=== PATIENT | female | born 1935 | race Caucasian/White ===

== ENCOUNTER → 2018-09-22 16:54 | Outpatient (CLI) | payer MEDICARE, OTHER, SELFPAY ==
--- NOTE | 2018-09-22 17:30 | MRI_ITS ---
STUDY: MRI BRAIN WITH AND WITHOUT CONTRAST REASON FOR EXAM: Female, 83 years old. Gait abnormality TECHNIQUE: Standardized multiplanar fat and water weighted pulse sequences were obtained. 13 IV Dotarem was administered for the contrast portion of the examination. COMPARISON: None. FINDINGS: Mild atrophy and moderate periventricular white matter ischemic change without mass effect or restricted diffusion. Chronic ischemic changes within the pk. Normal bilateral basal ganglia. Normal thalami. There is no extra-axial fluid accumulation. Normal flow voids within the major intracranial circulation suggesting patency by spin echo criteria. Normal venous enhancement. There is no enhancing intra-axial or extra-axial abnormality. Normal sella turcica, pituitary gland, infundibular stalk, optic chiasm and hypothalamus. Normal tectal plate and pineal gland. Normal midbrain, and medulla. Normal cerebellum. Normal basal cisterns. Normal bilateral temporal bones. Normal bilateral internal auditory canals. Postsurgical changes of the orbits.. Normal visualized paranasal sinuses. Normal calvarium and skull base. Normal visualized soft tissue structures. Normal visualized upper cervical spine. MRI/Brain W/WO Contrast IMPRESSION: Moderate periventricular matter ischemic changes and chronic ischemic changes of the pk without evidence for acute infarct. Electronically Signed: Andrew Frederick MD at 19:28 EDT , Service support ,
[2018-09-22 20:06] LABS: CREATININE FINGERSTICK 0.8 mg/dL (0.55-1.02); EGFR FINGERSTICK > 60.0000 mL/min (>60)
== END ==
PROVIDERS: Family Provider Internal Medicine; PCP Internal Medicine; Referring Provider Internal Medicine; Visit Provider Internal Medicine
DX: R51 Headache (principal); R26.9 Unspecified abnormalities of gait and mobility
CPT/HCPCS: 70553; A9575

== ENCOUNTER → 2018-10-12 | Outpatient (CLI) | payer MEDICARE, OTHER, SELFPAY ==
[2018-10-05 15:43] VITALS: BMI 21.8
--- NOTE | 2018-10-12 09:28 | BI_ITS ---
MAMMOGRAPHY - BILATERAL DIAGNOSTIC REASON FOR EXAM: Female, 83 years old. Palpable lump in the inferior medial aspect of the left breast. PERTINENT HISTORY: Aunt with breast cancer. Remote left excisional breast biopsy. TECHNIQUE: Digital bilateral breast kelly (3D mammographic acquisition) in the CC and MLO projections. 2-D mediolateral oblique (MLO) and craniocaudad (CC) views of both breasts were obtained. CAD: Full Field Digital Mammography with Computer Added Detection was performed. COMPARISON: Comparison is made with prior examination dated November 10, 2013. FINDINGS: Breast Composition: The breasts are extremely dense, which lowers the sensitivity of mammography. There is a 1.6 cm x 1.5 cm irregular spiculated nodule in the inferior medial aspect of the left breast. This corresponds to the palpable abnormality. Correlation with ultrasound is recommended. No other significant abnormalities are identified. BI/DIAG MAMM W/CAD, BILAT IMPRESSION: There is a 1.6 cm x 1.5 cm slightly irregular spiculated nodule in the inferior medial aspect of the left breast. Correlation with ultrasound is recommended. ASSESSMENT CATEGORY: BIRADS Category 0: Incomplete. Need additional imaging evaluation. A letter regarding these results will be sent to the patient by the facility within 30 days. Approximately 10% of breast cancers are not detected by mammography. A normal mammogram should not delay biopsy of a clinically suspicious abnormality. Electronically Signed: Arturo Van, at 12:48 EDT , Service support ,
--- NOTE | 2018-10-12 09:28 | US_ITS ---
STUDY: ULTRASOUND BREAST - LEFT REASON FOR EXAM: Female, 83 years old. Palpable lump left breast. TECHNIQUE: Axial and longitudinal images of the LEFT breast were performed with a high resolution ultrasound transducer. COMPARISON: Comparison is made with prior mammogram done earlier today. FINDINGS: LEFT Breast: The mammographic abnormality corresponds to a 1.8 cm x 1.6 cm x 1.2 cm hypoechoic slightly irregular nodule with increased vascularity. This is at the 11 o'clock position of the breast at 3 cm from the nipple. A biopsy is recommended. US/Breast Limited Unilateral IMPRESSION: 1.8 cm x 1.6 cm x 1.2 cm hypoechoic irregular nodule with increased vascularity at the 11:00 position of the breast at 3 cm from the nipple. ASSESSMENT CATEGORY: BIRADS Category 5: Highly Suggestive of Malignancy - Appropriate Action Should Be Taken. A letter regarding these results will be sent to the patient by the facility within 30 days. Electronically Signed: Arturo Van, at 12:49 EDT , Service support ,
== END | disposition home or self-care (01) ==
LOC: OPBI 09:24
PROVIDERS: Family Provider Internal Medicine; PCP Internal Medicine; Referring Provider Internal Medicine; Visit Provider Internal Medicine
DX: N63.22 Unspecified lump in the left breast, upper inner quadrant (principal)
CPT/HCPCS: 76642; 77062; 77066; G0279

== ENCOUNTER → 2018-10-15 09:07 | Outpatient (CLI) | payer MEDICARE, OTHER, SELFPAY ==
--- NOTE | 2018-10-15 | IMM_PTH ---
PATIENT: GARY CYR LOC: NIR U#:[id number] AGE/SX: 89/F ROOM: RE10/15/[address]: Dr. David Edmondson MD : 1935 BED: DIS: SPEC #: [id number] RECD: 10/16/18 09:57 STATUS: KAILASH REJef #: [id number] LEXII: 10/15/18 00:[address]: David Edmondson DEPT: IMMUNOHISTOCHEMISTRY RECD BY: Celina Prado ENTERED: 10/16/18 10:03 SP TYPE: IMMUNO OTHR DR: Dr. Ju Cho MD Tissues: B - Left breast, NOS Procedures: CALPONIN-1 (add) CK5-6 (add) CK8 (add) E-CAD (add) HER2 QING (add) KI-67 (add) P53 (add) SC (add) P40 (add) ER (initial) PHYSICIAN & [address] [address] SPECIMEN INFORMATION: Tissue Source: B - Left breast tissue at 11 o'clock Clinical Info: Abnormal left breast ultrasound Specimen Number: [id number] CPT code: 17602, 13534 x6, 73062 x3 METHODOLOGY: Deparaffinized sections of prefer/formalin-fixed tissue or PAP/DQ stained slides are incubated with monoclonal/polyclonal antibodies/oligonucleotide probes. Localization is made via biotin free immunoperoxidase method. Appropriate controls are performed and reacted as expected. Results on target cell population are indicated in the following table: RESULTS: ANTIBODY / CLONE RESULT Block B P53 (DO-7) positive 2% Ki-67 (30-9) positive, low CK8 (94poakG88) positive CK5-6 (D5 & 1684) negative Calponin-1 (VO114K) negative P40 (BC28) negative E-Cad (ECH-6) positive MORPHOMETRIC ANALYSIS ER (clone 6F11) >95%, strong intensity SC (clone 16/1E2) >95%, strong intensity Her-2Neu (clone CB11) 0-1+ The prognostic test for HER2 is performed on formalin-fixed paraffin embedded tissue. A 3+ (positive) staining pattern is defined as intense, homogeneous, complete, circumferential membranous staining in >10% of contiguous tumor cells. A similar weak (2+) staining pattern is interpreted as equivocal. GODWIN follow-up testing is recommended for all equivocal cases. Positivity/negativity for ER/SC is reported if > or < 1% of the tumor cells are immuno- reactive, respectively. The ASCO/CAP criteria is used for scoring. Reference: Journal of Clinical Oncology, 2013; 31:1496-2123 & 2010; 16:4858-2204. Duration of fixation: 12 Hrs; Sample Adequate: Yes. These assays have not been validated on decalcified tissues. Results should be interpreted with caution given the likelihood of false negativity on decalcified specimens. These tests were developed and their performance characteristics determined by [facility]. They may not have been cleared or approved by the U.S. Food and Drug Administration. The FDA has determined that such clearance or approval is not necessary. INTERPRETATION: Left breast tissue at 11 o'clock, biopsy: Invasive colloid carcinoma, grade 1. Positive for estrogen receptors (favorable prognostic indicator). Positive for progesterone receptors (favorable prognostic indicator). Negative for overexpression of NCQ0akb. AM:shashi 10/16/18
--- NOTE | 2018-10-15 | BRBX_PTH ---
PATIENT: GARY CYR LOC: [facility]#:[id number] AGE/SX: 89/F ROOM: RE10/15/[address]: Dr. David Edmondson MD : 1935 BED: DIS: SPEC #: [id number] RECD: 10/15/18 09:10 STATUS: KAILASH SANIA #: [id number] LEXII: 10/15/18 00:[address]: David Edmondson DEPT: SURGICAL PATHOLOGY RECD BY: Will Hoang ENTERED: 10/15/18 09:11 SP TYPE: BREAST BX OTHR DR: Dr. Ju Cho MD Tissues: A - Left breast, NOS B - Breast, NOS Procedures: Surgery Specimen Level IV HEADER OPERATION: Ultrasound-guided needle core biopsy, left breast PRE-OP DIAGNOSIS: Abnormal left breast ultrasound TISSUE SUBMITTED: A - Left breast tissue at 10 o'clock, B - Left breast tissue at 11 o'clock ISCHEMIC TIME: <1 minute FIXATION TIME: 12 hours MICROSCOPIC DIAGNOSIS A. Left breast tissue at 10 o'clock, ultrasound-guided core biopsy: Mature adipose tissue. No evidence of malignancy. B. 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 AM:shashi 10/16/18 COMMENT B. ER/OK/Shk3kbu studies are being performed on sections of tumor and the results from this study will be reported separately ([id number]). Case has been reviewed in consultation with Dr. Carpenter who concurs with the above diagnosis. IDC:SJ MICROSCOPIC DESCRIPTION Slides are reviewed. GROSS DESCRIPTION A - Received in fixative is one container labeled with the patient's name and designated left breast biopsy at 10 o'clock. The specimen consists of multiple elongated fragments of dumas-yellow fibroadipose tissue that in aggregate measure 1 x 0.3 x 0.1 cm. The entire specimen is submitted in one cassette. B - Received in fixative is one container labeled with the patient's name and designated left breast biopsy at 11 o'clock. The specimen consists of multiple elongated fragments of dumas-yellow fibroadipose tissue that in aggregate measure 1 x 0.2 x 0.1 cm. The entire specimen is submitted in one cassette. / SJ:rg 10/15/18 TC:0 CPT: 82364 x2
[2018-10-15 07:19] VITALS: BMI 21.8
== END ==
PROVIDERS: Family Provider Internal Medicine; PCP Internal Medicine; Referring Provider Surgery; Visit Provider Surgery
DX: R92.8 Other abnormal and inconclusive findings on diagnostic imaging of breast (principal)
CPT/HCPCS: 88305; 88341; 88342

== ENCOUNTER → 2018-10-20 13:09 | Outpatient (CLI) | payer MEDICARE, OTHER, SELFPAY ==
[2018-10-05 15:43] VITALS: BMI 21.8
[2018-10-15 07:19] VITALS: BMI 21.8
--- NOTE | 2018-10-20 13:13 | BD_ITS ---
STUDY: DUAL ENERGY X-RAY ABSORPTIOMETRY / DXA REASON FOR EXAM: Female, 83 years old. The patient is postmenopausal. Loss of height. TECHNIQUE: Bone Mineral Density (BMD) measurements of lumbar spine and bilateral hips were obtained. COMPARISON: Comparison is made with prior study dated May 01, 2005. FINDINGS: Lumbar Spine (L1-L4): g/cm2 (0.989) / T-score (-1.6) / Z-score (0.3) Findings are suggestive of osteopenia with a moderate fracture risk. Left Femur Total: g/cm2 (0.856) / T-score (-1.2) / Z-score (1.0) Left Femoral Neck: g/cm2 (0.832) / T-score (-1.5) / Z-score (0.8) Right Femur Total: g/cm2 (0.842) / T-score (-1.3) / Z-score (0.9) Right Femoral Neck: g/cm2 (0.838) / T-score (-1.4) / Z-score (0.9) The T-Scores on the most recent prior examination were: Lumbar Spine (L1-L4): There has been worsening of bone density since the previous examination. Left Femur Total: which represents a worsening of 6.2%. BD/Dexa Bone Density Study IMPRESSION: The patient is considered osteopenic as outlined below according to World [employer] Organization (WHO) criteria with a moderate fracture risk. There has been worsening of bone density since the previous examination. Reference Information: The T-score is the number of standard deviations above or below the standard which is normal for young adults at their peak bone mineral density. The World Health Organization (WHO) interprets the T-scores as follows: Above -1 Normal bone density Between -1 and -2.5 Osteopenia Equal to / or below -2.5 Osteoporosis As a practical clinical guideline, osteopenia may be graded as follows: Mild -1 through -1.5 Moderate -1.6 through -2.0 Severe -2.1 through -2.4 The Z-score is the number of standard deviations above or below age-matched controls. A Z-score of less than -1.5 would be considered abnormal. References: 1. NIH Osteoporosis and Related Bone Diseases http://www.osteo.org 2. International Society for Clinical Densitometry http://www.iscd.org 3. National Osteoporosis Foundation http://www.nof.org Electronically Signed: Arturo Van, at 14:11 EDT , Service support ,
== END ==
PROVIDERS: Family Provider Internal Medicine; PCP Internal Medicine; Referring Provider Internal Medicine; Visit Provider Internal Medicine
DX: Z78.0 Asymptomatic menopausal state (principal); Z12.31 Encounter for screening mammogram for malignant neoplasm of breast
CPT/HCPCS: 77080

== ENCOUNTER 2018-11-10 09:01 | Day surgery (SDC) | payer MEDICARE, OTHER, SELFPAY ==
[2018-10-27 08:42] VITALS: BMI 20.1
--- NOTE | 2018-11-05 06:19 | HP_ITS ---
Intake Vital Signs 11/05/18 Height 5 ft 6 in 11/05/18 Weight: 125 lb 11/05/18 Body Mass Index (BMI) 20.1 11/05/18 Blood Pressure 152/78 H 11/05/18 Blood Pressure Location Rt brachial 11/05/18 Blood Pressure Position Sitting 11/05/18 Respiratory Rate 18 11/05/18 Pulse Rate 79 11/05/18 Pulse Source Monitor 11/05/18 Temperature 98.0 F 11/05/18 Temperature Source Oral 11/05/18 Pulse Ox 100 11/05/18 Oxygen Delivery Method room air 11/05/18 Body Mass Index (BMI) 20.1 Intake Visit Reasons: discuss breast surgery Chief Complaint: Referred for left breast cancer. Lead Web Developer Required: No Is patient in pain?: No Allergies No Known Allergies Allergy (Verified 11/05/18 09:43) Medications Ascorbic Acid [Vitamin C] 500 mg PO DAILY 11/03/18 [History Confirmed 11/05/18] Carbidopa/Levodopa 10/100 [Sinemet] 1 tab PO TIDAC 11/03/18 [History Confirmed 11/05/18] Curamed 1 tab PO DAILY 11/03/18 [History Confirmed 11/05/18] L.acidoph,Paracasei, B.lactis [Probiotic] 1 ea PO DAILY 11/03/18 [History Confirmed 11/05/18] Lisinopril 20 mg PO 1600 11/03/18 [History Confirmed 11/05/18] Metoprolol Succinate 25 mg PO DAILY 11/03/18 [History Confirmed 11/05/18] Multivitamin [Daily Multiple Vitamin] 1 ea PO DAILY 11/03/18 [History Confirmed 11/05/18] [facility] Medical History Breast cancer in female (Acute) Abnormal mammogram of left breast (Acute) Paroxysmal atrial fibrillation (Acute) Mobitz (type) I (Wenckebach's) atrioventricular block (Chronic) Hypertension (Chronic) IBS (irritable bowel syndrome) (Chronic) Surgical History History of left heart catheterization (Chronic 12/06/16) H/O lumpectomy (Acute) History of bunionectomy of both great toes (Acute) Family History Mother Heart disease Father Heart disease chf Social History (Updated 11/05/18 @ 10:46 by David Edmondson MD) Smoking Status: Never smoker alcohol intake: never HPI HPI HPI: GARY CYR, is a 83 F who presents to the office today for HPI HPI Surgical H&P: Yes HPI: GARY CYR, is a 83 F who presents to the office today for ongoing preoperative surgical consultation. The patient has been kindly seen by Dr. Joe Zhou. I have also had a chance to discuss the patient's care with Dr. Zhou. Intake Intake Visit Reasons: Lt Breast Bx 10/15 Chief Complaint: Routine F/u Lead Web Developer Required: No Is patient in pain?: No Allergies No Known Allergies Allergy (Verified 10/20/18 16:20) Medications lisinopril 20 mg tablet 20 mg PO QDAY #90 tab 07/02/18 [Rx Confirmed 10/20/18] metoprolol succinate ER 25 mg tablet,extended release 24 hr 25 mg PO DAILY #90 tab 07/02/18 [Rx Confirmed 10/20/18] Subjective Details: 83-year-old female. She returns to discuss pathology results from a ultrasound- guided needle core biopsy upper inner left breast 11 o'clock position +3 cm that I performed for her on October 15, 2018. At that occasion I actually thought I saw 2 nodules. My previous notes reflect the following. Intake Visit Reasons: Birads 5 Lt Breast US/Mammo [facility] 10/12 Chief Complaint: Routine F/u Lead Web Developer Required: No Is patient in pain?: No Allergies No Known Allergies Allergy (Verified 10/15/18 07:19) Medications lisinopril 20 mg tablet 20 mg PO QDAY #90 tab 07/02/18 [Rx Confirmed 10/15/18] metoprolol succinate ER 25 mg tablet,extended release 24 hr 25 mg PO DAILY #90 tab 07/02/18 [Rx Confirmed 10/15/18] PFS Medical History Paroxysmal atrial fibrillation (Acute) Mobitz (type) I (Wenckebach's) atrioventricular block (Chronic) Hypertension (Chronic) IBS (irritable bowel syndrome) (Chronic) Surgical History History of left heart catheterization (Chronic 12/06/16) H/O lumpectomy (Acute) History of bunionectomy of both great toes (Acute) Family History Mother Heart disease Father Heart disease chf Social History (Updated 10/15/18 @ 18:39 by David Edmondson MD) Smoking Status: Never smoker alcohol intake: never HPI HPI HPI: GARY CYR, is a 83 F who presents to the office today for surgical consultation regardin palpable upper inner left breast mass. 83-year-old female. G4, . Menarche age 13. First child was born when she was 24. She has had a previous left breast cyst excised. She has not been on estrogen replacement. Family history is only notable for a maternal aunt with breast cancer. Within the past very few 1 to 2 weeks she was diagnosed with Parkinson-like symptoms and was placed on Sinemet. She also was noted to have an irregular heart rate was seen by Dr. Paulo Elizalde who did not feels that she had A. fib no anticoagulation was started.. He was unaware that she might require surgery. Also at the beginning of this week she had a Cologuard test submitted. \Because the patient to palpate a left breast mass on October 12, 2018 she had bilateral diagnostic mammogram showing a 1.6 x 1.5 cm irregular spiculated nodule upper inner left breast. Patient on the same day had ultrasound showing a 1.8 x 1.6 x 1.2 cm hypoechoic irregular nodule with increased vascularity 11 o'clock position +3 cm. BI-RADS Category 5. HPI HPI HPI: GARY CYR, is a 83 F who presents to the office today for ROS General General: No weight change, appetite, fatigue, colon cancer, breast cancer or weakness HEENT HEENT: No difficulty swallowing, eye injury, eye surgery, swollen glands or hoarseness Endo Endocrine: No thyroid disease, diabetes mellitus, thyroid cancer, Hair loss, heat intolerance or cold intolerance Skin Skin: No rash or changing moles Breast Breast: No left breast lump, right breast lump, nipple discharge, breast pain, abnormal mammogram, abnormal US or breast enlargement Musc Musculoskeletal: Yes arthritis; no back problems, rheumatoid arthritis, gout or joint pain Cardio Cardiovascular: Yes high blood pressure; no murmur, pacemaker, heart disease, atrial fibrillation, heart attack, heart stent, palpitations, shortness of breat with exertion or chest pain Psych Psychiatric: No depression, anxiety or hearing voices Resp Respiratory: No shortness of breath, No sleep apnea, No cough, No COPD, No asthma, No emphysema, No wheezing Gastro Gastrointestinal: No abdominal pain, Yes nausea or vomiting, Yes diarrhea, No constipation, No blood in stool, No acid reflux, No hemorrhoids, No ulcers, No gallbladder problem, No black,tarry stools Chaz Hematologic: No blood thinners, No blood disorders, No bleeding, No anemia, No blood clots Neuro Neurologic: No system reviewed and no additional complaints, except as docu, No as per HPI, No abnormal walking, No abnormal hearing, No abnormal movements, No abnormal speech, No behavioral changes, No burning sensations, No confusion, No seizure-like activity, No unsteadiness, No dizziness, No localized weakness, No frequent falls, No headache(s), No lack of coordination, No loss of vision, No memory loss, No numbness, No other visual disturbances, No radiating pain, No restless legs, No sensory deficit, No fainting, No tingling, No tremor(s), No weakness, No other Exam Const General: cooperative, comfortable, no acute distress Nutritional Appearance: average body habitus Orientation: alert, awake [facility] Head: normal to inspection Chest Breast Palpation: No nipple discharge Other: Right breast: No focal mass, no nipple discharge, no axillary clip adenopathy Left breast easily palpable 2 cm mass upper inner left breast 11 o'clock position with some dermal retraction. No nipple discharge. No axillary clavicular adenopathy Resp Auscultation: clear to auscultation bilaterally Other: Diminished respiratory excursion Cardio Heart Sounds: no murmurs Other: Irregular heartbeat Bilateral radial and brachial 3+ GI Palpation: soft, no hepatosplenomegaly Auscultation: normal bowel sounds Neuro Other: Somewhat flat affect slow to move Extrem Other: Mild left lower extremity swelling compared to the right Psych Affect: flat Office Procedures Biopsy Provider Documentation Ultrasound-guided needle core biopsy upper inner left breast Timeout and informed consent was obtained. Patient was taken to procedure room. She was placed on the table. The upper inner left breast was prepped with Betadine. Ultrasound was performed. 1% lidocaine mixed 50-50 with 0.5% Marcaine was used as local anesthetic. A total of 10 cc was used. Initially I thought the lesion was well identified. I made a small stab incision advanced a 14-gauge Monopty needle obtain 2 core samples. I placed a marking clip. Ribbon clip but this did not seem to correlate well. I moved the probe slightly to the 11 o'clock position and this correlated better with a much more suspicious lesion. I obtained one core sample of that. I placed a marking clip coil clip Steri-Strip Telfa OpSite dressing applied. The specimens placed in formalin when it documented 10 o'clock position was less suspicious what it left o'clock position which was clearly more specific suspicious lesion She is scheduled return to the office next week. This truly ended up being just 1 specimen of interest for core biopsy. David Edmondson M.D., F.A.C.S. Biopsy Breast Biopsy: [id number] US Guidance Procedure Time Out Time Out Informed consent given: Yes Consent signed: Yes Time out checklist: patient, procedure, site marked/identified, positioning of patient, supplies available, allergies confirmed, team agrees on procedure Time out staff in room: Yes Time out verified: Yes Time out date: 10/15/18 Time out time: 07:30 Assessment & Plan Problems 1. Abnormal mammogram of left breast R92.8 Plan 83-year-old female with a palpable mass upper inner left breast with skin fixation. On ultrasound I actually thought I saw this area that was biopsying but it was slightly more toward 10:00 that area appear to be more round and smooth and likely is inconsequential. I then adjusted the probe and was able to biopsy the area of much more heightened concerned. The patient's mammogram are BI-RADS Category 5. The patient has recently been seen by Dr. Elizalde because of palpitations. We will contact Dr. Paulo Elizalde's office as the patient likely will require surgical intervention and would need to have general anesthesia The patient also states that she just recently had a Cologuard test performed by Dr. Ju Cho. We have contacted that office while we await results. The patient tolerated the ultrasound-guided needle core biopsy upper inner left breast sampling today. We will have her return to the office next week. I am highly suspicious that this is malignancy. I do believe however that at age 83 she would likely be a good candidate for breast conservation surgery. The patient is accompanied by her daughter today. They will return as noted. CC: Astrid Cho and Tonio Edmondson MD,FACS Orders Orders: Biopsy Today N63.20 Coding Level of Care Code 64484 Diagnoses Abnormal mammogram of left breast R92.8 Additional Codes Biopsy - Breast Biopsy: 08581 US Guidance (83868) 10/15/181838<Electronically signed by David Edmondson MD> Date David Edmondson MD Objective Details: Left breast: Ultrasound-guided needle puncture site clean dry healing well with minimal ecchymosis Assessment & Plan Problems 1. Breast cancer in female C50.919 Plan Today was a 30-minute [id number] consultative appointment. Ultrasound-guided needle core biopsy of a more vague area upper inner left breast at 10 o'clock position is mature adipose tissue. 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 Estrogen receptors greater than 95%. Progesterone receptors greater than 95%. HER-2/alex is 0-1+. I had an extensive discussion with the patient in particular daughter today. The patient does have some dementia limitations. We discussed breast conservation surgery with lumpectomy and sentinel lymph node biopsy with nuclear tracer and blue dye. We discussed the potential for radiation treatment in addition to that process. We compared and contrasted that with a left total mastectomy and sentinel node biopsy. We briefly discussed reconstruction but the patient and daughter are not in favor of that. The patient is age 83. She does have recent cognitive decline. The degree of intervention and treatment is in some question. At the completion of the appointment I recommended that we obtain both medical oncology and radiation oncology consultation prior to proceeding with definitive surgery. Although I could avoid radiation treatment by performing a mastectomy that is longer surgery under general anesthesia and require skin flaps and drains in an overnight stay. Technically the patient's mass is not small as it is palpable and measures at least 1.8 cm in diameter. We will tentatively look for an operative date. The procedure still pending. We will obtain consultation as noted above. I appreciate the ongoing opportunity of assisting with her surgical care. CC:Dr Tammie Edmondson M.D., F.A.C.S. Orders Referrals: Oncology C50.912 Oncology C50.912 Coding Level of Care Code Off vis,est,level 3 Diagnoses Breast cancer in female C50.919 10/20/18 1720<Electronically signed by David Edmondson MD> Date David Edmondson MD Cosigner Signature:Date (if applicable) CC: Ju Cho MD ROS General General: No weight change, appetite, fatigue, colon cancer, breast cancer or weakness HEENT HEENT: No difficulty swallowing, eye injury, eye surgery, swollen glands or hoarseness Endo Endocrine: No thyroid disease, diabetes mellitus, thyroid cancer, Hair loss, heat intolerance or cold intolerance Skin Skin: No rash or changing moles Breast Breast: No left breast lump, right breast lump, nipple discharge, breast pain, abnormal mammogram, abnormal US or breast enlargement Musc Musculoskeletal: Yes arthritis; no back problems, rheumatoid arthritis, gout or joint pain Cardio Cardiovascular: Yes high blood pressure; no murmur, pacemaker, heart disease, atrial fibrillation, heart attack, heart stent, palpitations, shortness of breat with exertion or chest pain Psych Psychiatric: No depression, anxiety or hearing voices Resp Respiratory: No shortness of breath, No sleep apnea, No cough, No COPD, No asthma, No emphysema, No wheezing Gastro Gastrointestinal: No abdominal pain, Yes nausea or vomiting, Yes diarrhea, No constipation, No blood in stool, No acid reflux, No hemorrhoids, No ulcers, No gallbladder problem, No black,tarry stools Chaz Hematologic: No blood thinners, No blood disorders, No bleeding, No anemia, No blood clots Neuro Neurologic: No weakness Exam Chest Breast Palpation: No nipple discharge Cardio Heart Sounds: no murmurs Assessment & Plan Problems 1. 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 The lesion is palpable and is in the upper inner left breast 11 o'clock position +3 cm. We have discussed the technique, benefit, risks, alternatives. The patient and her daughter have had an opportunity to ask and have questions answered. We will proceed as noted. CC: Dr. Joe Zhou and Dr. Ju Edmondson M.D., F.A.C.S. 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 There are no clinical changes since date of exam.
[2018-11-05 09:41] VITALS: BMI 20.1
--- NOTE | 2018-11-05 10:23 | RAD_ITS ---
STUDY: X-RAY CHEST REASON FOR EXAM: Female, 83 years old. Preoperative evaluation. TECHNIQUE: PA and lateral views of the chest. COMPARISON: Comparison is made with prior study dated December 03, 2016. FINDINGS: Pectus excavatum deformity. The lungs are clear and expanded. Scattered calcified granulomas. There is no demonstrated pleural abnormality. Normal size heart. Normal mediastinum and elise. Normal visualized pulmonary arteries. There is atherosclerotic tortuosity of the aortic arch and descending thoracic aorta. There is demineralization of the osseous structures. Normal visualized ribs, clavicles, and shoulders. There is no demonstrated abnormality of the visualized soft tissue structures of the upper abdomen. RAD/Chest PA and Lateral IMPRESSION: Pectus excavatum deformity. No acute abnormality is seen. Electronically Signed: Arturo Van, at 11:23 EDT , Service support ,
[2018-11-05 10:32] LABS: Hematocrit 37.1 % (37-47); Hemoglobin 11.6 g/dL (12.0-15.0); Mean Corp Hgb Conc 31.3 g/dL (32-36); Mean Corpuscular Hgb 28.9 pg (27.0-32.0); Mean Corpuscular Volume 92.3 fL (81-99); Mean Platelet Vol. 9.9 fl (6.2-12.0); Platelet Count 176 K/mm3 (150-450); RBC Distribution Width CV 13.3 % (11.6-14.6); RBC Distribution Width SD 45.4 fl (35.1-43.9); Red Blood Count 4.02 M/mm3 (4.2-5.4); White Blood Count 6.4 K/mm3 (4.4-11.0)
[2018-11-05 10:55] LABS: ALB/GLOB Ratio 1.1 RATIO (0.9-2.4); AST(SGOT) 17 U/L (15-37); Alanine Aminotransfer ALT/SGPT 14 U/L (13-56); Alkaline Phosphatase 87 U/L (45-117); Anion Gap 8 (5-15); BUN 22 mg/dL (7-18); BUN/Creat Ratio 20.6 RATIO (10-20); Calcium,Total 9.3 mg/dL (8.5-10.1); Chloride 103 mmol/L (98-107); Creatinine, Serum 1.07 mg/dL (0.55-1.02); EST Glomerular Filtration Rate 52 mL/min (>60); Est Glom Filt Rate - Afr Amer 63 mL/min (>60); Globulin 3.6 g/dL (2.2-4.2); Glucose 89 mg/dL (74-106); Protein, Total 7.6 g/dL (6.4-8.2); Sodium Level 141 mmol/L (136-145)
--- NOTE | 2018-11-10 | BREAST_PTH ---
PATIENT: GARY CYR LOC: [facility] [place] U#:[id number] AGE/SX: 83/F ROOM: RE11/10/[address]: Dr. David Edmondson MD : 1935 BED: DIS: 11/10/2018 SPEC #: [id number] RECD: 11/10/18 11:31 STATUS: KAILASH REJef #: [id number] LEXII: 11/10/18 00:[address]: David Edmondson DEPT: SURGICAL PATHOLOGY RECD BY: Celina Prado ENTERED: 11/10/18 12:09 SP TYPE: BREAST OTHR DR: Dr. Ju Cho MD Tissues: A - Left breast, NOS B - Left breast, NOS Procedures: Frozen Section (charge) Surgery Specimen Level IV Surgery Specimen Level V HEADER OPERATION: Left breast lumpectomy PRE-OP DIAGNOSIS: Abnormal mammogram of left breast TISSUE SUBMITTED: A - Upper inner left breast mass, transverse ellipse tissue, suture in lateral aspect of ellipse, frozen section, B - Superior margin of upper inner left breast mass, suture nicholas area of skin closest to tumor, superior margin FROZEN SECTION DIAGNOSIS A. 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 AM:shashi 11/10/18 MICROSCOPIC DIAGNOSIS A. Left breast, lumpectomy: Invasive colloid carcinoma. See cancer checklist below. B. True superior margin, biopsy: Free of carcinoma. Mild fibrocystic change. Skin with no pathologic change. 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 Distance from closest (superior) margin - 1.7 cm (inclusive of true superior margin, specimen B) Microcalcifications: focally present in non-neoplastic tissue Treatment effect: unknown Additional pathologic findings: Usual intraductal hyperplasia without atypia and focal fibrocystic change. Ancillary studies: Previously performed on same tumor ([id number] / [id number]). ER: >95%, strong intensity AR: >95%, strong intensity Her2 alex: 0-1+ (IHC) Her2 by dual GODWIN: Not amplified PATHOLOGIC STAGE: pT1c Nx Mx The above summary is in compliance with [employer] [place] [employer] (CAP) Cancer Protocols Checklist and [place] [employer] Committee on Cancer (AJCC), Staging Manual, 8th Ed. Case has been reviewed in consultation with Dr. Carpenter who concurs with the above diagnosis. IDC:[id number] MICROSCOPIC DESCRIPTION Slides are reviewed. GROSS DESCRIPTION A - Received fresh for frozen section and OR consultation labeled with the patient's name is a specimen designated left breast mass. The specimen consists of a lumpectomy measuring 5.5 x 4 x 2 cm and weighing 20 gm. The specimen contains a metallic wire and has been oriented. The specimen contains an ellipse of dumas skin in the anterior aspect measuring 2.6 x 0.7 cm. No cutaneous lesions are identified. The specimen is differentially inked as follows: posterior - black, superior - blue, inferior - green, medial - red and lateral - orange. Serial sections reveal a firm, dumas-white spiculated mass measuring 1.6 x 1.2 x 1?cm extending to the inked superior margin of excision. The proximity of the lesion is conveyed to the surgeon intraoperatively A frozen section of this area is performed (block?1). The remainder of the breast parenchyma is yellow-white in color. No other mass lesions are identified. Catalogue Librarian sections are submitted in 12 cassettes after additional fixation as follows: 1 - tumor (frozen section), 2??skin, 3 & 4 - inked perpendicular margins, 5-7 - remainder of tumor, 8-12 - in store representative sections of uninvolved parenchyma adjacent to and away from tumor. B - Received in fixative is one container labeled with the patient's name and designated superior margin. The specimen consists of two irregular fragments of dumas-yellow fibrofatty tissue. One fragment measures 5.6 x 3 x 1 cm and contains a fragment of skin with recent incision that has been approximated by sutures measuring 3.5 cm in length. Serial sections do not reveal mass lesions. The second fragment consists of yellow-white fibrofatty tissue measuring 5 x 4 x 1.7 cm. This fragment is inked and serially sectioned. No mass lesions are identified. Catalogue Librarian fragments are submitted as follows: 1 - first fragment, 2-5 - second fragment submitted in its entirety. Sections are submitted after additional fixation. / AM:shashi 11/11/18 TC:0 CPT: 42729, 71561, 49913, 04350
[2018-11-10 09:23] VITALS: BP 156/80; PULSE 78; RESP 16; TEMP 36.5; O2SAT 100; BMI 24.3
--- NOTE | 2018-11-10 10:57 | DCINST_ITS ---
Discharge Diet: No Restrictions Discharge Activity: May Not Drive - for 2-3 days or while taking narcotic pain meds. May shower in (days): 1 Lifting Restrictions: 10 pounds for 1 week. Call your doctor if your incision/area has: Continuous Slow Oozing, Sudden In creased Bleeding Call your doctor if you observe: Fever of 101 or Higher Suture Line Care: Avoid Pulling/Pushing, Avoid Pinching/Bending Remove Dressing in (days):: 1 Additional Dressing/Incision Instructions:: Remove bulky dressing tomorrow. May leave any opsite dressing for 3-4 days. After you remove the plastic dressing you may leave the Steri-Strips in place for an additional 5 to 7 days Allergies/Adverse Reactions: Allergies No Known Allergies Allergy (Verified 11/10/18 09:21) Medications to take at Discharge Ascorbic Acid [Vitamin C] 500 mg PO DAILY 11/03/18 Carbidopa/Levodopa 10/100 [Sinemet] 1 tab PO TIDAC 11/03/18 Curamed 1 tab PO DAILY 11/03/18 L.acidoph,Paracasei, B.lactis [Probiotic] 1 ea PO DAILY 11/03/18 Lisinopril 20 mg PO 1600 11/03/18 Metoprolol Succinate 25 mg PO DAILY 11/03/18 Multivitamin [Daily Multiple Vitamin] 1 ea PO DAILY 11/03/18 Primary Care Physician: Ju Cho MD [Primary Care Provider] - Please Follow Up With: David Edmondson MD When: [phone] Office appt 7-10 days please
[2018-11-10] MEDS: Bupivacaine Mpf 0.5% 30 ML VIAL (11:36)
--- NOTE | 2018-11-10 11:59 | PCM.OPRPT ---
Problem List (1) Breast cancer in female Status: Acute Qualifiers: Breast location: upper inner quadrant of breast Estrogen receptor status: positive Laterality: left Qualified Code(s): C50.212 - Malignant neoplasm of upper-inner quadrant of left female breast; Z17.0 - Estrogen receptor positive status [ER+] Report of Operation Date of Procedure: 11/10/18 Pre-Operative Diagnosis: Upper inner left breast cancer Post-Operative Diagnosis: Same Surgery/Procedure Performed:: Partial mastectomy upper inner left breast Description of Surgical Findings:: Timeout and informed consent was obtained. 83-year-old female was taken to the operating room and placed supine on the table. The left breast was sterilely prepped draped. A transverse elliptical incision to include the palpable mass was performed. Sharp and electrocautery dissection was used to completely excise circumferentially around the lesion. A suture was placed in the lateral aspect of the lips. Gross analysis revealed that the superior margin was felt to be positive. So then I had previously closed incision I reexcised that ellipse of skin with inclusion of superior margin breast tissue. Hemostasis was assured with electrocautery. The ishamel-wound was closed with deep layer of interrupted 3-0 Vicryl and then a running septic or 4 Monocryl sub-the skin edges. Nice approximation was achieved. The ishmael-incisional area was anesthetized with 0.5% Marcaine a total of 30 cc was used. Steri-Strips Telfa OpSite bulky dressings applied. Sponge and instrument and needle counts reported the surgeon to be correct. She was taken to the recovery area in satisfactory condition. Specimen includes an initial skin with breast lump excision and then there was a secondary specimen which included reexcision of the closed skin edges with greater margin of skin was coming from the superior aspect of that transverse ellipse and including the superior aspect of the subcutaneous and breast tissue as a redo margin. Blood loss minimal. Drains none. David Edmondson MD Type of Anesthesia:: General, IV Sedation Anesthesiologist: Divya Villanueva
[2018-11-10 12:12] VITALS: BP 156/80; BP 176/79; PULSE 66; RESP 16; TEMP 35.9; O2SAT 98
[2018-11-10 12:15] VITALS: BP 156/80; BP 166/73; PULSE 64; RESP 16; O2SAT 98
[2018-11-10 12:33] VITALS: BP 156/80; BP 168/68; PULSE 62; RESP 16; O2SAT 98
[2018-11-10 12:44] VITALS: BP 156/80; BP 175/73; PULSE 61; RESP 14; TEMP 35.8; O2SAT 98
[2018-11-10 14:01] VITALS: BP 156/80; BP 185/85; PULSE 72; RESP 16; TEMP 36.6; O2SAT 97
== END 2018-11-10 14:01 | disposition home or self-care (01) ==
LOC: SDC 09:03 → AC 09:04
PROVIDERS: Family Provider Internal Medicine; PCP Internal Medicine; Referring Provider Surgery; Visit Provider Surgery
PROC: (CPT 19301; principal; 2018-11-10 10:45)
DX: C50.212 Malignant neoplasm of upper-inner quadrant of left female breast (principal); Z17.0 Estrogen receptor positive status [ER+]; N60.12 Diffuse cystic mastopathy of left breast; I48.0 Paroxysmal atrial fibrillation; I44.1 Atrioventricular block, second degree; I49.1 Atrial premature depolarization; I10 Essential (primary) hypertension; Z79.899 Other long term (current) drug therapy
CPT/HCPCS: 19301; 36415; 71046; 80053; 85027; 88305; 88307; 88331; J7120; J2405

== ENCOUNTER → 2018-11-24 10:24 | Outpatient (CLI) | payer MEDICARE, OTHER, SELFPAY ==
[2018-11-10 09:23] VITALS: BMI 24.3
[2018-11-24 11:24] LABS: Absolute Lymphocyte Count 1.45 X10^3/uL (0.83-4.51); Basophil# 0.04 X10^3/uL; Basophil% 0.4 % (0-1); Eosinophil# 0.05 X10^3/uL; Eosinophils% 0.5 % (0-5); Hemoglobin 12.1 g/dL (12.0-15.0); Lymphocyte # 1.45 X10^3/ul (4.0); Lymphocyte % 14.4 % (19-41); Mean Corp Hgb Conc 31.8 g/dL (32-36); Mean Corpuscular Hgb 29.7 pg (27.0-32.0); Mean Corpuscular Volume 93.1 fL (81-99); Mean Platelet Vol. 10.7 fl (6.2-12.0); Monocyte# 0.45 X10^3/uL; Monocyte% 4.5 % (0-10); NRBC Flagged by Analyzer 0 % (0-5); Neutrophil # 7.99 X10^3/uL (2.7-7.7); Neutrophil % 79.6 % (47-70); Platelet Count 206 K/mm3 (150-450); RBC Distribution Width CV 13.1 % (11.6-14.6); Red Blood Count 4.08 M/mm3 (4.2-5.4)
[2018-11-24 11:43] LABS: ALB/GLOB Ratio 1.1 RATIO (0.9-2.4); AST(SGOT) 14 U/L (15-37); Alanine Aminotransfer ALT/SGPT 13 U/L (13-56); Albumin, Serum 3.8 g/dL (3.2-5.0); Alkaline Phosphatase 85 U/L (45-117); Anion Gap 6 (5-15); BUN 20 mg/dL (7-18); BUN/Creat Ratio 20.2 RATIO (10-20); Calcium,Total 9.2 mg/dL (8.5-10.1); Chloride 106 mmol/L (98-107); Creatinine, Serum 0.99 mg/dL (0.55-1.02); EST Glomerular Filtration Rate 57 mL/min (>60); Est Glom Filt Rate - Afr Amer 69 mL/min (>60); Globulin 3.6 g/dL (2.2-4.2); Glucose 112 mg/dL (74-106); LDH 167 U/L (84-246); Potassium 4.2 mmol/L (3.5-5.1); Protein, Total 7.4 g/dL (6.4-8.2); Sodium Level 143 mmol/L (136-145)
== END ==
PROVIDERS: Family Provider Internal Medicine; PCP Internal Medicine; Referring Provider Internal Medicine Medical Oncology; Visit Provider Internal Medicine Medical Oncology
DX: C50.919 Malignant neoplasm of unspecified site of unspecified female breast (principal)
CPT/HCPCS: 36415; 80053; 83615; 85025

== ENCOUNTER → 2019-01-19 10:35 | Outpatient (CLI) | payer MEDICARE, OTHER, SELFPAY ==
[2019-01-19 10:35] VITALS: BMI 24.3
[2019-01-19 11:08] LABS: Absolute Lymphocyte Count 1.48 X10^3/uL (0.83-4.51); Absolute Neutrophil Count 4.3 X10^3/uL (2.0-7.7); Basophil# 0.03 X10^3/uL; Basophil% 0.5 % (0-1); Eosinophil# 0.07 X10^3/uL; Eosinophils% 1.1 % (0-5); Hematocrit 38.3 % (37-47); Lymphocyte # 1.48 X10^3/ul (4.0); Lymphocyte % 22.9 % (19-41); Mean Corp Hgb Conc 31.3 g/dL (32-36); Mean Corpuscular Hgb 29.1 pg (27.0-32.0); Mean Platelet Vol. 10.8 fl (6.2-12.0); Monocyte# 0.52 X10^3/uL; Monocyte% 8.1 % (0-10); NRBC Flagged by Analyzer 0 % (0-5); Neutrophil # 4.33 X10^3/uL (2.7-7.7); Neutrophil % 67.1 % (47-70); Platelet Count 185 K/mm3 (150-450); RBC Distribution Width CV 13.2 % (11.6-14.6); RBC Distribution Width SD 44.9 fl (35.1-43.9); Red Blood Count 4.12 M/mm3 (4.2-5.4); White Blood Count 6.5 K/mm3 (4.4-11.0)
[2019-01-19 11:35] LABS: ALB/GLOB Ratio 1.2 RATIO (0.9-2.4); AST(SGOT) 15 U/L (15-37); Alanine Aminotransfer ALT/SGPT 13 U/L (13-56); Alkaline Phosphatase 77 U/L (45-117); Anion Gap 5 (5-15); BUN 24 mg/dL (7-18); BUN/Creat Ratio 24.8 RATIO (10-20); Calcium,Total 9.3 mg/dL (8.5-10.1); Chloride 105 mmol/L (98-107); Creatinine, Serum 0.97 mg/dL (0.55-1.02); EST Glomerular Filtration Rate 58 mL/min (>60); Est Glom Filt Rate - Afr Amer 71 mL/min (>60); Globulin 3.3 g/dL (2.2-4.2); Glucose 91 mg/dL (74-106); LDH 172 U/L (84-246); Potassium 4.3 mmol/L (3.5-5.1); Protein, Total 7.3 g/dL (6.4-8.2); Sodium Level 139 mmol/L (136-145)
== END ==
PROVIDERS: Family Provider Internal Medicine; PCP Internal Medicine; Referring Provider Internal Medicine Medical Oncology; Visit Provider Internal Medicine Medical Oncology
DX: C50.919 Malignant neoplasm of unspecified site of unspecified female breast (principal)
CPT/HCPCS: 36415; 80053; 83615; 85025

== ENCOUNTER → 2019-11-22 09:03 | Outpatient (CLI) | payer MEDICARE, OTHER, SELFPAY ==
[2019-03-02 13:34] VITALS: BMI 20.5
--- NOTE | 2019-11-22 09:04 | BI_ITS ---
MAMMOGRAPHY - BILATERAL DIAGNOSTIC REASON FOR EXAM: Female, 84 years old. Prior left lumpectomy. PERTINENT HISTORY: Personal history of breast cancer. Aunt with breast cancer. TECHNIQUE: Digital bilateral breast kelly (3D mammographic acquisition) in the CC and MLO projections. 2-D mediolateral oblique (MLO) and craniocaudad (CC) views of both breasts were obtained. CAD: Full Field Digital Mammography with Computer Added Detection was performed. COMPARISON: Comparison is made with prior examination dated 10/12/2018. FINDINGS: Breast Composition: The breasts are extremely dense, which lowers the sensitivity of mammography. There are no dominant masses or suspicious calcifications. Since prior study, the patient underwent resection of a nodule in the inferior anterior medial portion of the left breast. Postoperative changes are seen at that site. Stable linear bilateral calcifications. No other significant abnormalities are identified. BI/DIAG MAMM W/CAD, BILAT IMPRESSION: Status post lumpectomy involving the inferior medial portion of the left breast as described. No new amount is seen. One year follow-up recommended. (A) ASSESSMENT CATEGORY: BIRADS Category 2: Benign. A letter regarding these results will be sent to the patient by the facility within 30 days. Approximately 10% of breast cancers are not detected by mammography. A normal mammogram should not delay biopsy of a clinically suspicious abnormality. Electronically Signed: Arturo Van, at 10:05 EDT , Service support ,
== END ==
PROVIDERS: PCP Internal Medicine; Referring Provider Surgery; Visit Provider Surgery
DX: C50.919 Malignant neoplasm of unspecified site of unspecified female breast (principal); Z85.3 Personal history of malignant neoplasm of breast
CPT/HCPCS: 77062; 77066; G0279

== ENCOUNTER 2020-05-29 10:04 | Outpatient (RCR) | payer MEDICARE, OTHER, SELFPAY ==
[2020-01-04 12:38] VITALS: BMI 20.5
== END 2020-05-29 23:59 ==
LOC: IMMUN 10:04
PROVIDERS: PCP Internal Medicine; Visit Provider Family Medicine
DX: Z23 Encounter for immunization (principal)
CPT/HCPCS: 0011A; 0012A

== ENCOUNTER → 2020-12-26 15:34 | Outpatient (CLI) | payer MEDICARE, OTHER, SELFPAY ==
[2020-01-04 12:38] VITALS: BMI 20.5
--- NOTE | 2020-12-26 15:38 | BI_ITS ---
MAMMOGRAPHY - BILATERAL SCREENING REASON FOR EXAM: Female, 85 years old. Routine annual screening examination. PERTINENT HISTORY: Personal history of breast cancer. Prior left lumpectomy. Aunt with breast cancer. TECHNIQUE: Digital bilateral breast sera (3D mammographic acquisition) in the CC and MLO projections. 2-D mediolateral oblique (MLO) and craniocaudad (CC) views of both breasts were obtained. CAD: Full Field Digital Mammography with Computer Added Detection was performed. COMPARISON: Comparison is made with prior study dated 11/22/2019 and 10/12/2018. FINDINGS: Breast Composition: The breasts are extremely dense, which lowers the sensitivity of mammography. There are no dominant masses or suspicious calcifications. The patient is status post lumpectomy in the inferior anterior medial portion of the left breast. Postoperative changes with overlying skin thickening. No other significant abnormalities are identified. There has been no significant change since the prior study. BI/SCRN MAMM (CAD)W/SERA BILAT IMPRESSION: Stable bilateral screening mammogram. Yearly follow-up mammogram recommended. (A) ASSESSMENT CATEGORY: BIRADS Category 2: Benign. A letter regarding these results will be sent to the patient by the facility within 30 days. Approximately 10% of breast cancers are not detected by mammography. A normal mammogram should not delay biopsy of a clinically suspicious abnormality. [id number] Electronically Signed: Arturo Van MD at 8:34 EDT , Service support ,
== END ==
PROVIDERS: PCP Student in an Organized Health Care Education/Training Program; Visit Provider Surgery
DX: Z12.31 Encounter for screening mammogram for malignant neoplasm of breast (principal)
CPT/HCPCS: 77063; 77067

== ENCOUNTER 2021-10-19 17:37 | Emergency (ER) | payer MEDICARE, OTHER, SELFPAY ==
[2021-10-19 17:39] VITALS: BP 136/99; PULSE 90; RESP 14; TEMP 36.7; O2SAT 100; BMI 20.5
--- NOTE | 2021-10-19 18:14 | EKG12_ITS ---
Test Reason : DYSRHYTHMIA Blood Pressure : / mmHG Vent. Rate : 084 BPM Atrial Rate : 357 BPM P-R Int : 000 ms QRS Dur : 092 ms QT Int : 376 ms P-R-T Axes : 000 -31 082 degrees QTc Int : 444 ms Atrial flutter with variable A-V block Left axis deviation Septal infarct , age undetermined Abnormal ECG Confirmed by ALONA ALLEN, LESLI ([id number]), editor news RACH BERNABE ([id number]) on 10/23/2021 9:18:26 AM Referred By: BB Confirmed By:LESLI SAGE MD
--- NOTE | 2021-10-19 18:22 | NURSING ---
NO OLD EKGS
[2021-10-19 18:25] LABS: Absolute Lymphocyte Count 2.34 X10^3/uL (0.83-4.51); Absolute Neutrophil Count 4.4 X10^3/uL (2.0-7.7); Basophil# 0.04 X10^3/uL; Basophil% 0.5 % (0-1); Eosinophil# 0.09 X10^3/uL; Eosinophils% 1.2 % (0-5); Hematocrit 38.7 % (37-47); Hemoglobin 12.6 g/dL (12.0-15.0); Lymphocyte # 2.34 X10^3/ul (0.83-4.51); Lymphocyte % 31.2 % (19-41); Mean Corp Hgb Conc 32.6 g/dL (32-36); Mean Corpuscular Hgb 30.1 pg (27.0-32.0); Mean Corpuscular Volume 92.4 fL (81-99); Mean Platelet Vol. 10.6 fl (6.2-12.0); Monocyte# 0.65 X10^3/uL; Monocyte% 8.7 % (0-10); NRBC Flagged by Analyzer 0 % (0-5); Neutrophil # 4.36 X10^3/uL (2.7-7.7); Neutrophil % 58.1 % (47-70); Platelet Count 186 K/mm3 (150-450); RBC Distribution Width CV 13.3 % (11.6-14.6); RBC Distribution Width SD 45.2 fl (35.1-43.9); Red Blood Count 4.19 M/mm3 (4.2-5.4); White Blood Count 7.5 K/mm3 (4.4-11.0)
--- NOTE | 2021-10-19 18:30 | RAD_ITS ---
STUDY: XR Chest 2 Views 10/19/2021 6:38 PM REASON FOR EXAM: Female, 86 years old. CHEST PAIN weakness COMPARISON: None TECHNIQUE: XR Chest 2 Views FINDINGS: There is no demonstrated pleural abnormality. Normal heart size. Normal mediastinum. Normal elise. Prominent appearing increased interstitial lung markings. Normal visualized pulmonary arteries. There is atherosclerotic calcification of the aortic arch with tortuosity. There are diffuse degenerative changes of the visualized thoracic spine. There is degenerative osteoarthritis of the bilateral shoulders. There is no demonstrated abnormality of the visualized soft tissue structures of the upper abdomen. RAD/Chest PA and Lateral IMPRESSION: There are no acute findings. Electronically Signed: Tk Weinberg MD at 18:53 EDT ,
--- NOTE | 2021-10-19 18:52 | EDS_ITS ---
HPI History of Present Illness Chief Complaint: Palpitations Informant: patient Narrative Narrative: 86-year-old female with history of Parkinson's states she has had some vague symptoms of not feeling well today. She states she has still been able to get around without any significant difficulty. She does have issues using steps with regards to her Parkinson's, but she walks without cane, walker, or other assist device and is independent with regards to ADLs. She states she felt a little woozy today, difficult to tell whether she is referring to some type of dizziness, off balance, but she states she does not feel nauseated. She has denied any chest pain, shortness of breath, palpitations. However she went to PCP and sounded like she had an irregular heartbeat so they did an EKG in the office and found rate controlled atrial flutter. She sees a cardiology group. [place], she was seeing Dr. Elizalde before he left, because of an old MO and Wenckebach and was simply being followed there, but the A. fib/flutter is new. She had a negative stress echo in 2017, and a diagnostic cath that showed normal coronary arteries and normal LV function. She and daughter were referred here to the emergency department today. [facility] Medical History (HFpEF) heart failure with preserved ejection fraction (04/13/21) Abnormal mammogram of left breast Breast cancer in female Essential hypertension IBS (irritable bowel syndrome) Left ventricular diastolic dysfunction Mobitz (type) I (Wenckebach's) atrioventricular block Home Medications Curamed 1 tab PO DAILY supplement 11/03/18 [History Last Taken Unknown] L.acidoph, paracasei,B. lactis 10 billion cell capsule 1 ea PO DAILY supplement 11/03/18 [History Last Taken Unknown] ascorbic acid (vitamin C) 500 mg tablet 500 mg PO DAILY supplement 11/03/18 [History Last Taken Unknown] carbidopa 10 mg-levodopa 100 mg tablet 1 tab PO TIDAC parkinsons 11/03/18 [History Last Taken Unknown] multivitamin 1 ea PO DAILY supplement 11/03/18 [History Last Taken Unknown] lisinopril 20 mg tablet 20 mg PO DAILY htn #90 tabs 02/07/21 [Rx Last Taken Unknown] loperamide 2 mg tablet (Imodium A-D) 2 mg PO Q6H PRN Diarrhea 02/07/21 [History Last Taken Unknown] melatonin 3 mg capsule 3 mg PO HS PRN Insomnia 02/07/21 [History Last Taken Unknown] metoprolol succinate 25 mg tablet,extended release 24 hr 25 mg PO DAILY htn #90 tabs 02/07/21 [Rx Last Taken Unknown] furosemide 40 mg tablet (Lasix) 40 mg PO DAILY PRN edema 04/16/21 [History Last Taken Unknown] apixaban 2.5 mg tablet (Eliquis) 2.5 mg PO BID #60 tabs 10/19/21 [Rx Last Taken Unknown] Allergy/AdvReac Type Severity Reaction Status Date / Time No Known Allergies Allergy Verified 10/19/21 17:39 Family History Mother Heart disease Father Heart disease chf Surgical History H/O lumpectomy History of bunionectomy of both great toes History of left heart catheterization (12/06/16) Status post partial mastectomy of left breast (11/10/18) Social History Smoking Status: Never smoker alcohol intake: never ROS ROS ED Constitutional Constitutional ED: Reports as per HPI and malaise; Denies chills or fever(s) Eyes Eyes: Denies change in vision or diplopia ENT ENT ED: Denies rhinorrhea or sore throat Cardiovascular Cardiovascular: Denies chest pain or palpitations Respiratory/Chest Respiratory/Chest: Denies cough or dyspnea Gastrointestinal Gastrointestinal: Denies abdominal pain, diarrhea, nausea or vomiting Genitourinary Genitourinary ED: Denies dysuria or hematuria Musculoskeletal Musculoskeletal: Denies back pain or neck pain Integumentary Denies abscess or rash Neurologic Neurologic: Reports as per HPI, dizziness and tremor(s); Denies headache(s), paresthesias, vertigo or weakness Psychiatric Psychiatric: Denies anxiety or suicidal thoughts EXAM Physical Exam Const Vital Signs: 10/19/21 17:39 10/19/21 17:49 Temperature 98.1 F Temperature Source Temporal Pulse Rate 90 Respiratory Rate 14 Respiratory Effort Normal Blood Pressure 136/99 H Blood Pressure Mean 111 Pulse Ox 100 Oxygen Delivery Method Room Air Positive well nourished and well developed General Appearance ED: well developed and NAD HEENT Reports moist mucous membranes normocephalic and atraumatic Eyes PERRL and EOMs intact bilaterally Neck full ROM and supple Resp normal respiratory effort and clear to auscultation bilaterally Cardio no murmurs Rate: Negative for tachycardic Rhythm: abnormal rhythm irregularly irregular GI non-tender and non-distended Auscultation: normoactive bowel sounds Palpation: soft Back/Spine no CVA tenderness General Back: other FROM Extremity normal to inspection General Extremety ED: Negative for edema, pulses abnormal or tenderness General Extremity: Negative for edema or pulses abnormal Neuro oriented x3, CN's II-XII intact bilaterally and no sensory deficits noted Sensorium / Orientation: awake and alert Motor Exam: strength 5/5 throughout Skin no rashes or lesions noted and no wounds MDM MDM MDM Narrative Medical decision making narrative: Aside from an EGFR around 50, her work-up is negative. Urine does show signs of infection, I am sending it for culture since she has no urinary symptoms. She has been rate controlled since she has been here in the emergency department without any thoracic symptoms. She is on metoprolol succinate 25 mg once daily which is probably helping to keep her rate controlled. I discussed with Dr. Lott, he agrees with placing the patient on anticoagulants which I discussed at length with the patient and family, we discussed pros and cons, we discussed different medications, and my recommendation for apixaban, and everyone is comfortable with anticoagulation, and cardiology recommends outpatient follow- up, patient has an appointment after the weekend on Friday with Dr. Farias which is perfect. We will have her start the medication in the morning since it is twice daily. We discussed reasons to return are comfortable with that plan. Lab Data Attestation: I reviewed the patient's lab results. Labs: Laboratory Results - last 24 hr 10/19/21 10/19/21 10/19/21 17:54 17:54 18:50 WBC 7.5 RBC 4.19 L Hgb 12.6 Hct 38.7 MCV 92.4 MCH 30.1 MCHC 32.6 RDW Std Deviation 45.2 H RDW Coeff of Tracie 13.3 Plt Count 186 MPV 10.6 Immature Gran % (Auto) 0.300 Neut % (Auto) 58.1 Lymph % (Auto) 31.2 Will % (Auto) 8.7 Eos % (Auto) 1.2 Baso % (Auto) 0.5 Absolute Neuts (auto) 4.4 Absolute Lymphs (auto) 2.34 Nucleated RBC % 0 Sodium 137 Potassium 4.2 Chloride 104 Carbon Dioxide 29.0 Anion Gap 4 L BUN 23 H Creatinine 1.17 H Estim Creat Clear Calc 31.44 Est GFR (MDRD) Af Amer 56 L Est GFR (MDRD) Non-Af 47 L BUN/Creatinine Ratio 19.7 Glucose 107 H Calcium 9.6 Troponin I High Sens 9 Urine Color Yellow Urine Clarity Sl. Cloudy Urine pH 7.0 Ur Specific [place]ham 1.010 Urine Protein Negative Urine Glucose (UA) Normal Urine Ketones Negative Urine Occult Blood 10 H Urine Nitrite Negative Urine Bilirubin Negative Urine Urobilinogen Normal Ur Leukocyte Esterase 500 H Urine RBC 0-5 SEEN Urine WBC 10-25 SEEN Ur Squamous Epith Cells 0-5 SEEN Amorphous Sediment 1+ PHOS Urine Bacteria 0 SEEN Urine Mucus 0 SEEN Radiography Diagnostic Testing: Clinical Impression(s) from Imaging Studies Chest X-Ray 10/19/21 18:30 IMPRESSION: There are no acute findings. Electronically Signed: Tk Weinberg MD at 18:53 EDT , Rhythm Strip Rhythm Strip: Atrial flutter Rate: 85 Ectopy: None EKG Initial EKG: Attestation: I personally reviewed and interpreted this EKG as follows: Interpretation: No Acute Injury Pattern and Atrial Flutter (With variable conduction, averaging 4:1) Prior EKG tracings: available for review Prior: Changed (Rhythm changed but morphology/axis identical) Discharge Plan Triage Chief Complaint: Palpitations ED Provider: Anatoly Bowens Dx/Rx/DC Orders Clinical Impression: Atrial flutter, Parkinsons disease, Malaise Instructions: Using Blood Thinners Anticoagulants, ED Atrial Flutter Prescriptions: New Eliquis 2.5 mg tablet 2.5 mg PO BID Qty: 60 0RF No Action melatonin 3 mg capsule 3 mg PO HS PRN (Reason: Insomnia) loperamide [Imodium A-D] 2 mg tablet 2 mg PO Q6H PRN (Reason: Diarrhea) metoprolol succinate 25 mg tablet extended release 24 hr 25 mg PO DAILY Qty: 90 3RF lisinopril 20 mg tablet 20 mg PO DAILY Qty: 90 3RF multivitamin 1 EACH tablet 1 ea PO DAILY ascorbic acid (vitamin C) 500 MG tablet 500 mg PO DAILY L.acidoph, paracasei,B. lactis 1 EACH capsule 1 ea PO DAILY Curamed 1 tab PO DAILY carbidopa-levodopa 1 TABLET tablet 1 tab PO TIDAC furosemide [Lasix] 40 mg tablet 40 mg PO DAILY PRN (Reason: edema) Rx Instructions: per PCP take x 7 days or prn Primary Care Provider: Prabhjot Skelton Referrals: Corky Farias MD [STAFF PHYSICIAN] - Keep [place] appointment (This Monday 10/23) Prabhjot Skelton DO [Primary Care Provider] - Disposition Disposition: Home, Self Care
[2021-10-19 18:55] LABS: Anion Gap 4 (5-15); BUN 23 mg/dL (7-18); BUN/Creat Ratio 19.7 RATIO (10-20); Calcium,Total 9.6 mg/dL (8.5-10.1); Chloride 104 mmol/L (98-107); Creatinine, Serum 1.17 mg/dL (0.55-1.02); EST Glomerular Filtration Rate 47 mL/min (>60); Est Glom Filt Rate - Afr Amer 56 mL/min (>60); Estimated Creatinine Clearance 31.44 ml/min; Glucose 107 mg/dL (74-106); Potassium 4.2 mmol/L (3.5-5.1); Sodium Level 137 mmol/L (136-145); Troponin-I HS 9 pg/mL (3.0-54.0)
[2021-10-19 18:57] LABS: Bacteria 0 SEEN /hpf (None Seen); Mucous, Urine 0 SEEN /hpf (<or=2+)
[2021-10-19 19:03] LABS: Color, Urine Yellow (Yellow); Glucose, Dipstick Normal (Normal); Ketone-Dipstick Negative (Negative); Leukocyte Esterase-Dipstick 500 /ul (Negative); Nitrite-Dipstick Negative (Negative); Occult Blood-Urine 10 /ul (Negative); Protein-Dipstick Negative (Negative); Urine Bilirubin Dipstick Negative (Negative); Urine Clarity Sl. Cloudy (Clear); Urine Urobilinogen Normal (Normal)
[2021-10-19 19:10] LABS: Amorphous Sediment 1+ PHOS; Red Blood Cells-Urine 0-5 SEEN /hpf (0-5); Squamous Epithelial Cells - UA 0-5 SEEN /hpf (5-10); White Blood Cells 10-25 SEEN /hpf (0-5)
[2021-10-19 19:59] VITALS: BP 132/86; PULSE 88; RESP 16
[2021-10-19 20:26] VITALS: BP 132/86
== END 2021-10-19 20:40 | disposition home or self-care (01) ==
PROVIDERS: Emergency Provider Emergency Medicine; PCP Student in an Organized Health Care Education/Training Program; Visit Provider Emergency Medicine
DX: I48.92 Unspecified atrial flutter (principal); G20 Parkinson's disease; I11.0 Hypertensive heart disease with heart failure; I50.32 Chronic diastolic (congestive) heart failure; R53.81 Other malaise; I25.2 Old myocardial infarction; Z79.01 Long term (current) use of anticoagulants; Z79.899 Other long term (current) drug therapy
CPT/HCPCS: 71046; 80048; 81001; 84484; 85025; 87086; 87088; 93005; 99284; A4216

== ENCOUNTER → 2021-12-04 | Outpatient (CLI) | payer MEDICARE, OTHER, SELFPAY ==
--- NOTE | 2021-12-04 14:47 | ECHOD_ITS ---
Reason For Study: Afib/Flutter Procedure This was a 2D Doppler, Color Flow transthoracic echocardiogram. The study was technically difficult. Exam performed in department. Left Ventricle Normal LV size. Left ventricular systolic function is normal. The estimated ejection fraction is 60 %. No regional wall motion abnormalities noted. Right Ventricle Normal RV size. Normal systolic function. Atria Normal left atrium. Normal right atrium. Mitral Valve Normal mitral valve. Tricuspid Valve Normal tricuspid valve. Mild tricuspid valve insufficiency. Pulmonary artery systolic pressure is 29 mmHg. Aortic Valve Normal aortic valve. Trisinus/trileaflet aortic valve. Pulmonic Valve Normal pulmonic valve. Great Vessels Normal aortic root. The pulmonary artery is normal size. Normal inferior vena cava. Pericardium/Pleural No pericardial effusion. MMode/2D Measurements & Calculations LVIDd: 3.2 cm IVSd: 0.89 cm Ao root diam: 2.7 cm LVIDs: 2.2 cm LVPWd: 1.0 cm LA dimension: 3.7 cm RVDd: 2.7 cm FS: 30.0 % LAV(MOD-bp): 43.6 ml LA A4 area: 17.2 cm2 RA A4 area: 16.4 cm2 LAV(MOD-bp) Indexed: 26.6 ml/m2 LAV(MOD-sp2): 45.8 ml LAV(MOD-sp4): 37.1 ml Doppler Measurements & Calculations MV E max debbie: 105.1 cm/sec Ao V2 max: 89.4 cm/sec LV V1 max: 59.8 cm/sec Ao max P.2 mmHg LV V1 max P.5 mmHg MR max debbie: 485.6 cm/sec PA V2 max: 57.8 cm/sec TR max debbie: 256.5 cm/sec MR max P.3 mmHg TR max P.3 mmHg ECHO/Echo Complete Interpretation Summary Normal LV size. Left ventricular systolic function is normal. The estimated ejection fraction is 60 %. Pulmonary artery systolic pressure is 29 mmHg. Structurally normal valves. Ordering Physician: Corky Farias Referring Physician: Prabhjot Skelton Performed By: Shailesh Elmore RCS
== END | disposition home or self-care (01) ==
LOC: CVS 14:46
PROVIDERS: PCP Student in an Organized Health Care Education/Training Program; Referring Provider Internal Medicine Cardiovascular Disease; Visit Provider Internal Medicine Cardiovascular Disease
DX: I48.92 Unspecified atrial flutter (principal); I11.0 Hypertensive heart disease with heart failure; I50.30 Unspecified diastolic (congestive) heart failure; I44.1 Atrioventricular block, second degree
CPT/HCPCS: 93306

== ENCOUNTER → 2021-12-26 | Outpatient (CLI) | payer MEDICARE, OTHER, SELFPAY | END | disposition home or self-care (01) | LOC: PSN 09:05 | PROVIDERS: PCP Student in an Organized Health Care Education/Training Program; Referring Provider Internal Medicine Cardiovascular Disease; Visit Provider Internal Medicine Cardiovascular Disease | DX: I48.92 Unspecified atrial flutter (principal); I44.1 Atrioventricular block, second degree | CPT/HCPCS: 93225; 93226 ==

== ENCOUNTER → 2022-08-14 | Outpatient (REF) | payer MEDICARE, OTHER, SELFPAY ==
[2022-08-14 09:31] LABS: Anion Gap 5 (5-15); BUN 26 mg/dL (7-18); BUN/Creat Ratio 25.5 RATIO (10-20); Calcium,Total 9.6 mg/dL (8.5-10.1); Chloride 104 mmol/L (98-107); Creatinine, Serum 1.02 mg/dL (0.55-1.02); EST Glomerular Filtration Rate 54 mL/min (>60); Est Glom Filt Rate - Afr Amer 66 mL/min (>60); Glucose 90 mg/dL (74-106); Sodium Level 139 mmol/L (136-145)
== END ==
LOC: OLS.ACH2 05:00
PROVIDERS: PCP Student in an Organized Health Care Education/Training Program
DX: G20 Parkinson's disease (principal)
CPT/HCPCS: 36415; 80048

== ENCOUNTER → 2022-11-01 | Outpatient (REF) | payer MEDICARE, OTHER, SELFPAY ==
[2022-11-01 08:47] LABS: Hematocrit 40.6 % (37-47); Hemoglobin 13.1 g/dL (12.0-15.0); Mean Corp Hgb Conc 32.3 g/dL (32-36); Mean Corpuscular Hgb 29.2 pg (27.0-32.0); Mean Corpuscular Volume 90.4 fL (81-99); Mean Platelet Vol. 10.7 fl (6.2-12.0); Platelet Count 188 K/mm3 (150-450); RBC Distribution Width CV 13.9 % (11.6-14.6); RBC Distribution Width SD 46.3 fl (35.1-43.9); Red Blood Count 4.49 M/mm3 (4.2-5.4); White Blood Count 6.5 K/mm3 (4.4-11.0)
[2022-11-01 09:12] LABS: Anion Gap 2 (5-15); BUN 23 mg/dL (7-18); BUN/Creat Ratio 21.9 RATIO (10-20); Calcium,Total 9.5 mg/dL (8.5-10.1); Chloride 105 mmol/L (98-107); Creatinine, Serum 1.05 mg/dL (0.55-1.02); EST Glomerular Filtration Rate 53 mL/min (>60); Est Glom Filt Rate - Afr Amer 64 mL/min (>60); Glucose 91 mg/dL (74-106); Potassium 3.9 mmol/L (3.5-5.1); Sodium Level 139 mmol/L (136-145); Thyroid Stim Hormone (TSH) 3.27 uIU/mL (0.358-3.74)
== END ==
LOC: OLS.ACH2 04:00
PROVIDERS: PCP Student in an Organized Health Care Education/Training Program; Referring Provider Student in an Organized Health Care Education/Training Program; Visit Provider Student in an Organized Health Care Education/Training Program
DX: I10 Essential (primary) hypertension (principal)
CPT/HCPCS: 36415; 80048; 84443; 85027

== ENCOUNTER → 2024-02-19 | Outpatient (REF) | payer MEDICARE, SELFPAY ==
[2024-02-19 08:48] LABS: Hematocrit 37.7 % (37-47); Hemoglobin 12.2 g/dL (12.0-15.0); Mean Corp Hgb Conc 32.4 g/dL (32-36); Mean Corpuscular Hgb 29.5 pg (27.0-32.0); Mean Corpuscular Volume 91.1 fL (81-99); Mean Platelet Vol. 10.4 fl (6.2-12.0); Platelet Count 208 K/mm3 (150-450); RBC Distribution Width CV 13.4 % (11.6-14.6); RBC Distribution Width SD 45.2 fl (35.1-43.9); Red Blood Count 4.14 M/mm3 (4.2-5.4)
[2024-02-19 09:10] LABS: BNP,B-Type NATRIURETIC PEPTIDE 172.8 pg/mL (0-100)
[2024-02-19 09:11] LABS: Vitamin D,25 Hydroxy 97.6 ng/mL
[2024-02-19 09:12] LABS: AST(SGOT) 12 U/L (15-37); Alanine Aminotransfer ALT/SGPT < 6 U/L (13-56); Albumin, Serum 3.6 g/dL (3.2-5.0); Alkaline Phosphatase 99 U/L (45-117); Anion Gap 4 (5-15); BUN 23 mg/dL (7-18); Calcium,Total 9.1 mg/dL (8.5-10.1); Chloride 108 mmol/L (98-107); Cholesterol 143 mg/dL (200); EST Glomerular Filtration Rate 56 mL/min (>60); Est Glom Filt Rate - Afr Amer 67 mL/min (>60); Globulin 3.7 g/dL (2.2-4.2); Glucose 101 mg/dL (74-106); High Density Lipoprotein 58 mg/dL; Phosphorus 2.9 mg/dL (2.5-4.9); Potassium 3.9 mmol/L (3.5-5.1); Protein, Total 7.3 g/dL (6.4-8.2); Sodium Level 141 mmol/L (136-145); Triglycerides 77 mg/dL; Very Low Density Lipoprotein 15 mg/dL (5-40)
[2024-02-19 10:16] LABS: PTHIN 41.1 pg/mL (18.4-80.1)
== END ==
LOC: OLS.ACH2 05:00
PROVIDERS: PCP Student in an Organized Health Care Education/Training Program
DX: Z00.00 Encounter for general adult medical examination without abnormal findings (principal); Z13.220 Encounter for screening for lipoid disorders; G20.C Parkinsonism, unspecified; N18.31 Chronic kidney disease, stage 3a; R60.9 Edema, unspecified
CPT/HCPCS: 36415; 80053; 80061; 82306; 83880; 83970; 84100; 85027

== ENCOUNTER → 2024-03-10 | Outpatient (REF) | payer MEDICARE, SELFPAY ==
[2024-03-11 10:35] LABS: Microalbumin,Random Urine 38.5 mg/L (NO RANGE EST.); Microalbumin:Creatinine Ratio 54.1 mg/g CRE (<30 mg/g CRE)
== END ==
LOC: OLS.ACH2 20:30
PROVIDERS: PCP Student in an Organized Health Care Education/Training Program
DX: Z00.00 Encounter for general adult medical examination without abnormal findings (principal); N18.31 Chronic kidney disease, stage 3a; R60.9 Edema, unspecified
CPT/HCPCS: 82043; 82570

== ENCOUNTER → 2024-05-24 05:00 | Outpatient (REF) | payer MEDICARE, SELFPAY ==
[2024-05-24 09:04] LABS: Hematocrit 37.2 % (37-47); Hemoglobin 11.9 g/dL (12.0-15.0); Mean Corpuscular Hgb 29.9 pg (27.0-32.0); Mean Corpuscular Volume 93.5 fL (81-99); Mean Platelet Vol. 10.6 fl (6.2-12.0); Platelet Count 215 K/mm3 (150-450); RBC Distribution Width CV 13.8 % (11.6-14.6); Red Blood Count 3.98 M/mm3 (4.2-5.4); White Blood Count 8.2 K/mm3 (4.4-11.0)
[2024-05-24 09:29] LABS: BNP,B-Type NATRIURETIC PEPTIDE 127.6 pg/mL (0-100)
[2024-05-24 21:30] LABS: ALB/GLOB Ratio 0.8 RATIO (0.9-2.4); AST(SGOT) 17 U/L (15-37); Alanine Aminotransfer ALT/SGPT 8 U/L (13-56); Albumin, Serum 3.6 g/dL (3.2-5.0); Alkaline Phosphatase 97 U/L (45-117); Anion Gap 7 (5-15); BUN 27 mg/dL (7-18); BUN/Creat Ratio 25.5 RATIO (10-20); Calcium,Total 9.4 mg/dL (8.5-10.1); Chloride 104 mmol/L (98-107); Creatinine, Serum 1.06 mg/dL (0.55-1.02); EST Glomerular Filtration Rate 52 mL/min (>60); Est Glom Filt Rate - Afr Amer 63 mL/min (>60); Globulin 4.3 g/dL (2.2-4.2); Glucose 92 mg/dL (74-106); Protein, Total 7.9 g/dL (6.4-8.2); Sodium Level 142 mmol/L (136-145)
== END ==
LOC: OLS.ACH2 05:00
PROVIDERS: PCP Student in an Organized Health Care Education/Training Program; Visit Provider Internal Medicine
DX: N18.31 Chronic kidney disease, stage 3a (principal); W19.XXXA Unspecified fall, initial encounter; I48.0 Paroxysmal atrial fibrillation; I10 Essential (primary) hypertension
CPT/HCPCS: 36415; 80053; 83880; 84439; 84443; 85027

== ENCOUNTER → 2024-06-17 04:00 | Outpatient (REF) | payer MEDICARE, SELFPAY ==
[2024-06-17 09:17] LABS: Hematocrit 37.4 % (37-47); Mean Corp Hgb Conc 32.1 g/dL (32-36); Mean Corpuscular Hgb 29.2 pg (27.0-32.0); Mean Platelet Vol. 10.5 fl (6.2-12.0); Platelet Count 331 K/mm3 (150-450); RBC Distribution Width CV 13.8 % (11.6-14.6); RBC Distribution Width SD 46.5 fl (35.1-43.9); Red Blood Count 4.11 M/mm3 (4.2-5.4); White Blood Count 8.6 K/mm3 (4.4-11.0)
[2024-06-17 09:39] LABS: AST(SGOT) 22 U/L (<=31); Alanine Aminotransfer ALT/SGPT 18 U/L (<=34); Albumin, Serum 3.8 g/dL (3.4-4.8); Alkaline Phosphatase 122 U/L (35-104); Anion Gap 10 (5-15); BUN 28 mg/dL (4-19); BUN/Creat Ratio 23.4 RATIO (10-20); Calcium,Total 9.8 mg/dL (7.6-11.0); Chloride 98 mmol/L (98-108); Creatinine, Serum 1.19 mg/dL (0.70-1.20); EST Glomerular Filtration Rate 44 (>60); Glucose 93 mg/dL (70-99); Potassium 4.1 mmol/L (3.3-5.1); Protein, Total 7.8 g/dL (5.9-8.4); Sodium Level 138 mmol/L (133-145)
[2024-06-17 10:33] LABS: CPK Total, Creatine Kinase 41 U/L (24-195); Pro- Brain NATRIURETIC PEPTIDE 2517 pg/mL (<=1800)
== END ==
LOC: OLS.ACH2 04:00
PROVIDERS: PCP Student in an Organized Health Care Education/Training Program
DX: I12.9 Hypertensive chronic kidney disease with stage 1 through stage 4 chronic kidney disease, or unspecified chronic kidney disease (principal); N18.31 Chronic kidney disease, stage 3a; I48.0 Paroxysmal atrial fibrillation
CPT/HCPCS: 36415; 80053; 82550; 83880; 85027; 87086

== ENCOUNTER 2024-06-17 19:24 | Inpatient (IN) | payer MEDICARE, SELFPAY ==
[2024-06-17] VITALS (17 sets, daily range): BP systolic 149–184; BP diastolic 80–111; PULSE 91–109; RESP 13–22; TEMP 35.9–37; O2SAT 95–99
--- NOTE | 2024-06-17 20:31 | EKG12_ITS ---
Test Reason : ABN LABS Blood Pressure : */* mmHG Vent. Rate : 90 BPM Atrial Rate : * BPM P-R Int : * ms QRS Dur : 80 ms QT Int : 356 ms P-R-T Axes : * -24 60 degrees QTcB Int : 435 ms Atrial fibrillation Anteroseptal infarct (cited on or before 19-Oct-2021) Abnormal ECG Confirmed by ALONA ALLEN, LESLI ([id number]), commercial production editor LUBNA SILVESTRE ([id number]) on 06/18/2024 8:08:53 AM Referred By: FADY Confirmed By: LESLI SAGE MD
--- NOTE | 2024-06-17 20:31 | RAD_ITS ---
PROCEDURE: CHEST PA AND LATERAL 06/17/2024 REASON FOR EXAM: 89-year-old female, known right pleural effusion, advised to come to ED. TECHNIQUE: Frontal and lateral views of the chest. COMPARISON: Chest radiograph 10/19/2021. FINDINGS: At least mild cardiomegaly. The right cardiac border is obscured. The mediastinal contour is stable. Large right pleural effusion. No left focal consolidation or pneumothorax. Degenerative changes are identified within the thoracic spine. RAD/Chest PA and Lateral IMPRESSION: Cardiomegaly with right pleural effusion. Diagnostic and therapeutic thoracent esis is recommended if clinically indicated for further evaluation. Reading Location: [id number]
[2024-06-17 20:46] LABS: Absolute Lymphocyte Count 1.91 X10^3/uL (0.83-4.51); Absolute Neutrophil Count 7.4 X10^3/uL (2.0-7.7); Basophil# 0.06 X10^3/uL; Basophil% 0.6 % (0-1); Eosinophil# 0.11 X10^3/uL; Hematocrit 33.7 % (37-47); Lymphocyte # 1.91 X10^3/ul (0.83-4.51); Lymphocyte % 18.1 % (19-41); Mean Corp Hgb Conc 32.6 g/dL (32-36); Mean Corpuscular Hgb 29.3 pg (27.0-32.0); Mean Corpuscular Volume 89.9 fL (81-99); Mean Platelet Vol. 10.2 fl (6.2-12.0); Monocyte# 1.04 X10^3/uL; Monocyte% 9.9 % (0-10); NRBC Flagged by Analyzer 0 % (0-5); Neutrophil # 7.37 X10^3/uL (2.7-7.7); Neutrophil % 69.8 % (47-70); Platelet Count 299 K/mm3 (150-450); RBC Distribution Width CV 13.7 % (11.6-14.6); RBC Distribution Width SD 45.2 fl (35.1-43.9); Red Blood Count 3.75 M/mm3 (4.2-5.4); White Blood Count 10.6 K/mm3 (4.4-11.0)
[2024-06-17 21:09] LABS: Anion Gap 10 (5-15); BUN 34 mg/dL (4-19); BUN/Creat Ratio 25.4 RATIO (10-20); Calcium,Total 9.4 mg/dL (7.6-11.0); Carbon Dioxide 28.3 mmol/L (21.0-32.0); Chloride 98 mmol/L (98-108); Creatinine, Serum 1.35 mg/dL (0.70-1.20); EST Glomerular Filtration Rate 38 (>60); Glucose 110 mg/dL (70-99); Potassium 4.2 mmol/L (3.3-5.1); Pro- Brain NATRIURETIC PEPTIDE 2158 pg/mL (<=1800); Sodium Level 137 mmol/L (133-145)
--- NOTE | 2024-06-17 21:17 | EX.ED.DYSGE1 ---
HPI History of Present Illness Chief Complaint: Abn Labs Detail of Chief Complaint: Patient has fluid collection. Informant: patient and family Onset/Context/Timing Onset: - (Unknown.) Context: - (Not applicable) Timing: - (Not applicable) Quality: Fluid in lung Location: Uncertain Current Severity: Unknown Maximum Severity: unknown Worsened by: Unknown Relieved by: nothing Associated Symptoms Associated Symptoms: Dyspnea with activity Narrative Narrative: Patient is an 89-year-old woman. She is DNR, care. In speaking with her she is no intubation, no CPR no invasive monitoring. She has a daughter who is a nurse practitioner. She is not the one that is present, however. I did speak with her by phone. I was informed that she had an x-ray that revealed a pleural effusion. Uncertain what side it is on. Clinically it is on the right. Patient had chronic swelling of her lower extremities. She is not that active so this may be dependent edema. Of note she has history of breast cancer. Cancer was located left breast. She denies fever, chills night sweats. She denies rhinorrhea, congestion postnasal drainage. Denies sore throat. She denies weight gain or weight loss. She denies abdominal pain, nausea, vomiting or diarrhea. Prior similar symptoms: No Recent Illness/Hospitalization: No PFSH PFSH Medical History HLD (hyperlipidemia) Parkinsons disease Atrial flutter Paroxysmal atrial fibrillation (HFpEF) heart failure with preserved ejection fraction (04/13/21) Left ventricular diastolic dysfunction Essential hypertension Breast cancer in female Abnormal mammogram of left breast Mobitz (type) I (Wenckebach's) atrioventricular block IBS (irritable bowel syndrome) Home Medications ?Medication ?Instructions ?Recorded ?Last Taken ?Type Curamed 1 tab PO DAILY supplement 11/03/18 Unknown History carbidopa 10 mg-levodopa 100 mg 1 tab PO TIDAC parkinsons 11/03/18 Unknown History tablet multivitamin 1 ea PO DAILY supplement 11/03/18 Unknown History loperamide 2 mg tablet (Imodium 2 mg PO Q6H PRN Diarrhea 02/07/21 Unknown History A-D) melatonin 3 mg capsule 3 mg PO HS PRN Insomnia 02/07/21 Unknown History metoprolol succinate 25 mg 25 mg PO DAILY htn #90 tabs 02/07/21 Unknown Rx tablet,extended release 24 hr apixaban 2.5 mg tablet (Eliquis) 2.5 mg PO BID #60 tabs 11/12/21 Unknown Rx acetaminophen 325 mg capsule 325 mg PO ONCE PRN 05/06/22 Unknown History ascorbic acid (vitamin C) 1,000 mg 1 g PO Q6H 05/06/22 Unknown History tablet bisacodyl 10 mg rectal suppository 10 mg MD DAILY PRN 05/06/22 Unknown History calcium 600 mg (as carbonate)-vit tab PO 05/06/22 Unknown History D3 10 mcg (400 unit) chewable tablet (Calcium 600 with Vitamin D3) elderberry fruit 350 mg capsule mg PO 05/06/22 Unknown History magnesium hydroxide 400 mg/5 mL 5 ml PO DAILY PRN 05/06/22 Unknown History oral suspension (Johnson Milk of Magnesia) sennosides 8.6 mg-docusate sodium 1 tab-cap PO QHS PRN 05/06/22 Unknown History 50 mg tablet carboxymethylcellulose sodium 1 % 1 drp ophthalmic (eye) TID 10/24/22 Unknown History eye drops (Artificial Tears (carboxymethylcellulose)) erythromycin 5 mg/gram (0.5 %) eye 1 applic ophthalmic (eye) DAILY 10/24/22 Unknown History ointment vitamins A,C,P-ddsz-ubssom 4,296 1 cap PO BID 10/24/22 Unknown History mcg-226 mg-90 mg capsule famotidine 20 mg tablet 20 mg PO BID PRN 06/12/23 Unknown History furosemide 40 mg tablet 40 mg PO DAILY #90 tabs 06/12/23 Unknown Rx lisinopril 20 mg tablet 10 mg (1/2 x 20 mg) PO DAILY htn 05/28/24 Unknown Rx #0 tabs Allergy/AdvReac Type Severity Reaction Status Date / Time No Known Allergies Allergy Verified 06/17/24 19:28 Family History Mother Heart disease Father Heart disease chf Surgical History Status post partial mastectomy of left breast (11/10/18) History of bunionectomy of both great toes H/O lumpectomy History of left heart catheterization (12/06/16) Social History household members: none Smoking Status: Never smoker alcohol intake: never substance use type: does not use ROS ROS ED Constitutional Constitutional ED: Denies chills, fever(s), subjective or sweats Eyes Eyes: Denies blurry vision or change in vision ENT ENT ED: Denies ear pain, rhinorrhea or sore throat Cardiovascular Cardiovascular: Reports orthopnea; Denies chest pain, palpitations, paroxysmal nocturnal dyspnea or racing heartbeat Respiratory/Chest Respiratory/Chest: Reports dyspnea on exertion and orthopnea; Denies cough, dyspnea or paroxysmal nocturnal dyspnea Gastrointestinal Gastrointestinal: Denies abdominal pain, nausea or vomiting Genitourinary Genitourinary ED: Denies dysuria, hematuria or urinary frequency Musculoskeletal Musculoskeletal: Denies back pain or neck pain Integumentary Denies rash Neurologic Neurologic: Denies paresthesias Endocrine Endocrinology: Denies cold intolerance or heat intolerance Hematologic/Lymphatic Hematologic/Lymphatic: Reports systems reviewed and no addt'l complaints, except as documented EXAM Physical Exam Const Vital Signs: 06/17/24 19:26 06/17/24 19:43 06/17/24 19:43 Temperature 96.6 F L 98.6 F Temperature Source Temporal Oral Pulse Rate 99 97 Respiratory Rate 13 16 Respiratory Effort Short of Breath Respiratory Pattern Normal Blood Pressure 149/93 H 158/86 H Blood Pressure Mean 111 110 Pulse Ox 97 97 Oxygen Delivery Method Room Air Room Air 06/17/24 20:00 06/17/24 21:00 06/17/24 22:00 Temperature Temperature Source Pulse Rate 104 H 97 106 H Respiratory Rate 21 H 18 14 Respiratory Effort Respiratory Pattern Blood Pressure 161/80 H 170/91 H 172/111 H Blood Pressure Mean 107 117 131 Pulse Ox 96 97 97 Oxygen Delivery Method Room Air Room Air Room Air 06/17/24 23:00 06/18/24 00:00 Temperature Temperature Source Pulse Rate 106 H 93 Respiratory Rate 14 19 H Respiratory Effort Respiratory Pattern Blood Pressure 162/92 H 167/99 H Blood Pressure Mean 115 121 Pulse Ox 98 99 Oxygen Delivery Method Room Air Room Air Positive well nourished and well developed General Appearance ED: well developed and NAD; Negative for pallor HEENT Reports moist mucous membranes Eyes PERRL and EOMs intact bilaterally General Eye ED: Negative for pale conjunctiva or scleral icterus Neck no lymphadenopathy, supple and no JVD Chest Wall inspection of chest normal and palpation of chest normal Resp Resp Narrative: Absent breath sounds lower 1/3-1/2 on the right. There is no rales or rhonchi noted. There is no expiratory wheezing. Effort and Inspection: Negative for retractions or pain with movement Cardio regular rate and no murmurs Rhythm: abnormal rhythm irregularly irregular GI normal to inspection, nondistended, normoactive bowel sounds, non-tender, non-distended and no masses; Negative for hepatosplenomegaly Back/Spine no CVA tenderness Extremity General Extremety ED: Yes edema General Extremity: edema Neuro oriented x3 and CN's II-XII intact bilaterally Sensorium / Orientation: alert Psych mental status grossly normal Skin no rashes or lesions noted General Skin Exam: elasticity normal; Negative for jaundice or pallor MDM MDM MDM Narrative Medical decision making narrative: Since x-ray is not available for review we will obtain x-ray in the department. EKG to assess for any acute ischemia. Since she has pedal edema and suspected moderate right pleural effusion will obtain BNP. Electrolyte panel was obtained to assess BUN and creatinine. CBC to assess H&H and she does appear pale even though her conjunctive is pink. Lab Data Attestation: I reviewed the patient's lab results. Lab results narrative: CBC reveals mild anemia with normal indices. Basic metabolic panel was an elevated creatinine of 1.35 with an estimated GFR of 38. BNP is 2158. Labs: Laboratory Results - last 24 hr 06/17/24 06/17/24 20:40 22:40 WBC 10.6 RBC 3.75 L Hgb 11.0 L Hct 33.7 L MCV 89.9 MCH 29.3 MCHC 32.6 RDW Std Deviation 45.2 H RDW Coeff of Tracie 13.7 Plt Count 299 MPV 10.2 Immature Gran % (Auto) 0.600 Neut % (Auto) 69.8 Lymph % (Auto) 18.1 L [place] % (Auto) 9.9 Eos % (Auto) 1.0 Baso % (Auto) 0.6 Absolute Neuts (auto) 7.4 Absolute Lymphs (auto) 1.91 Nucleated RBC % 0 Sodium 137 Potassium 4.2 Chloride 98 Carbon Dioxide 28.3 Anion Gap 10 BUN 34 H Creatinine 1.35 H Est GFR (MDRD) Non-Af 38 L BUN/Creatinine Ratio 25.4 H Glucose 110 H Calcium 9.4 NT pro BNP II 2158 H Fluid Source THORACENTESIS Fluid Color YELLOW Fluid Appearance CLEAR Fluid pH Cancelled Fluid WBC 0.145 Fluid Tot Cell Count 0.170 H Fld Polynuclear WBCs # 0.008 Fld Polynuclear WBCs % 5.5 Fluid Mononuclear WBCs 0.137 Fld Mononuclear WBCs % 94.5 Fluid Total Protein 3.8 Fluid Comment 2 SEE COMMENT Radiography Chest X-Ray - ED: 2 View, Read by ED Physician (There is evidence of cardiomegaly. There is a moderate right pleural effusion. Patient will need a thoracentesis. Since she has history of breast cancer on the left will send fluid for analysis.) and - (Inspiratory and expiratory film reveals a pneumothorax. Will inform patient and place Heimlich valve. All of the pleural fluid was removed.) Diagnostic Testing: Clinical Impression(s) from Imaging Studies Chest X-Ray 06/17/24 20:31 IMPRESSION: Cardiomegaly with right pleural effusion. Diagnostic and therapeutic thoracentesis is recommended if clinically indicated for further evaluation. Reading Location: [facility] Chest X-Ray 06/17/24 23:00 IMPRESSION: [id number] bilateral pleural effusions with atelectasis. Reading Location: [facility] Chest x-ray was placed after Heimlich valve, 8 [place] pigtail. The lung is expanding. It is in proper position. EKG Initial EKG: Attestation: I personally reviewed and interpreted this EKG as follows: Interpretation: Atrial Fibrillation (Rate is 90. There is decreased anterior force. Cures duration 80 ms. QT duration 3 and 56 ms. [place] is normal.) Management Discussion w/another healthcare provider: Hospitalist (Dr. Faith was paged for admission to medical service with consult to surgery.) and Feed Mill Manager (Spoke with Dr. Sung Gamino. He requested admission to hospital service and he will see her in consultation for the iatrogenic pneumothorax.) Treatment and Re-Evaluation :: Discussion with patient and 2 daughters regarding thoracentesis. They were informed of risk benefits. They were informed of my complications. There were made aware most common complications. She was informed if she unfortunately does develop a pneumothorax she will require chest tube and admission. Because this is a moderate pleural effusion on the right with no cephalization and history of breast cancer will send fluid for analysis. Procedures Other Procedures Procedure(s): Thoracentesis right side: Consent was obtained. Timeout was called. Landmarks were demarcated. The area was prepped and draped sterile manner. Skin was anesthetized with 1% lidocaine. The rib was anesthetized. Using the thoracentesis kit straw-colored clear fluid was aspirated, no air bubbles noted. Catheter was advanced. 60 cc was aspirated with syringe and sent for analysis. An additional 1 L was taken off. Will obtain postprocedure x-ray inspiratory and expiratory Tory to rule out pneumothorax which is a known complication. Patient tolerated procedure well. Daughter was made aware. Patient and daughters were informed that she did develop an pneumothorax. Will place a pigtail with Heimlich valve and have patient follow-up with Dr. Gamino. He will be contacted once procedures been completed. 8 [place] thoracostomy tube placed anteriorly third intercostal space on the right. Consent was obtained. Patient was cleaned risk benefits. Her most significant risk is bleeding since she is on apixaban for chronic atrial fibrillation. Timeout was performed. Patient was prepped draped sterile manner. Third intercostal space midclavicular line was entered on first attempt superficial vein was nicked and cause bleeding. Catheter was withdrawn from the skin. Another area was anesthetized. The pleural was successfully entered. The catheter was advanced. The catheter was sutured in place and Heimlich valve was attached. Chest x-ray was obtained to confirm proper position. Discharge Plan Dx/Rx/DC Orders Clinical Impression: Pleural effusion, right, Parkinsons disease, Essential hypertension, (HFpEF) heart failure with preserved ejection fraction, Lymphedema of both lower extremities, Atrial fibrillation, chronic, Anticoagulant long-term use, Pneumothorax, iatrogenic Disposition Disposition: Acute Care Hospital [facility]
--- NOTE | 2024-06-17 22:13 | FLU_PTH ---
PATIENT: GARY CYR LOC: MS3 U#:[id number] AGE/SX: 89/F ROOM: [facility] RE06/18/[address]: Dr. Girish Childress DO : 1935 BED: 1 DIS: 06/21/2024 SPEC #: [id number] RECD: 06/18/24 09:51 STATUS: KAILASH LUI #: [id number] LEXII: 06/17/24 22:[address]: Girish Childress DEPT: CYTOLOGY RECD BY: Wade Gonzalez ENTERED: 06/18/24 09:51 SP TYPE: Fluid OTHR DR: MD Dr. Prabhjot Jara DO Dr. Michael Bortz, MD Tissues: A - THORACIC FLUID Procedures: Special Stain Group II Surgery Specimen Level IV Cytospin Fluid HEADER OPERATION: Not noted PRE-OP DIAGNOSIS: Pleural effusion TISSUE SUBMITTED: Thoracentesis fluid for cytology DIAGNOSIS CYTOLOGY Thoracentesis fluid, cytology and cell block:Lymphocytes and mesothelial cellsDavie Mojica MD, 06/23/2024 CYTOLOGY STUDY Slides are reviewed. CYTOLOGY GROSS A. Received is 1000 ml of yellow-cloudy fluid labeled with the patient's name and and designated per the requisition as Thoracentesis fluid. Submitted for cytology preparation including cell block. CPT: 81032, TC:4
[2024-06-17] MEDS: Lidocaine 1% (20 ml mdv) 20 ML Vial INFILT (22:25)
[2024-06-17 22:55] LABS: Cytology, Body Fluid / CSF SEE PATHOLOGY REPORT; Pathologist Comment/Body Fluid May follow
--- NOTE | 2024-06-17 23:00 | RAD_ITS ---
PROCEDURE: CHEST INSP/EXP 2 VIEW 06/17/2024 REASON FOR EXAM: STATUS POSTTHORACENTESIS RIGHT TECHNIQUE: Frontal and lateral views of the chest. COMPARISON: None FINDINGS: Heart size is mildly enlarged. There are atherosclerotic calcifications of the thoracic aorta. [id number] bilateral pleural effusions indication with atelectasis. No pneumothorax. No focal consolidation. Degenerative changes are identified within the thoracic spine. RAD/Chest Insp/Exp 2 View IMPRESSION: [id number] bilateral pleural effusions with atelectasis. Reading [facility]
[2024-06-17 23:17] LABS: Body Fluid Mononuclear WBC # 0.137 10^3/uL; Body Fluid Mononuclear WBC % 94.5 %; Body Fluid Polynuclear WBC # 0.008 10^3/uL; Body Fluid Polynuclear WBC % 5.5 %; White Blood Count/Body Fluid 0.145 10^3/uL
[2024-06-17 23:48] LABS: Appearance/Body Fluid CLEAR; Auto B Fluid Analyzer BKGD Ct COUNTS W/IN LIMITS (W/IN LIMITS); Body Fluid QC Type(s) BFQ2; Color/Body Fluid YELLOW; Source- Body Fluid THORACENTESIS
--- NOTE | 2024-06-17 23:50 | RAD_ITS ---
PROCEDURE: Portable upright chest radiograph, one view 06/18/2024 REASON FOR EXAM: CHEST TUBE PLACEMENT TECHNIQUE: Portable upright chest radiograph. COMPARISON: 06/17/2024 FINDINGS: The patient is rotated to the left. Low depth of inspiration. The cardiomediastinal silhouette is similar. There are mild patchy areas of opacity at the lung bases and probable small bilateral pleural effusions. No pulmonary vascular congestion or left pneumothorax. A small caliber right chest tube is now present projecting over the upper lateral right blaine thorax. 2 mm calcified granuloma projects over the upper lateral right blaine thorax. Size of the right apical pneumothorax is slightly improved measuring 3 cm on the current study compared to 3.5 cm on the earlier study. RAD/Chest 1 View (Portable) IMPRESSION: Interval placement small bore right chest tube, projecting over the upper later al right blaine thorax. Slight interval decrease in size of the right pneumothorax as above. There are some persistent patchy opacities at the lung bases, which could be du e to atelectasis or pneumonia. Small bilateral pleural effusions also remain. Recommend continued radiologic follow-up to doc ument resolution. Reading Location: [facility]
[2024-06-18] VITALS (14 sets, daily range): BP systolic 126–168; BP diastolic 64–99; PULSE 87–108; RESP 16–26; TEMP 36.6–37.2; O2SAT 96–99; BMI 21.3; BMI 20.6; BMI 20.5
--- NOTE | 2024-06-18 00:20 | PCM.HP.STD ---
HPI - General General Date of Admission: 06/18/24 Date of Service: 06/18/24 Chief Complaint: Dyspnea. HPI Narrative The patient is an 89 y/o F w/ PMHx: CKD stage III unclear subtype per GFR trending, HTN, GERD, Parkinson's disease, PAF/Flutter, Hx L sided breast CA, HFpEF, Chronic anemia who presents to the [facility] ED on 06/18/2024 with worsening dyspnea, notable with activity with known right-sided pleural effusion with chronic swelling in her lower extremities with history of previous left-sided breast cancer with no recent fevers or chills nor any specific weight loss or night sweats but given symptomatic prompted family to bring patient to the ED for evaluation. Patient did also report aside from dyspnea, worse with exertion and lower extremity swelling orthopnea also. Patient's daughter is a nurse practitioner and did discuss patient's history upon ED arrival with ED physician. It was confirmed that patient is a DNR CC specifically. ED physician per discussion with family did perform thoracentesis with 60 cc of fluid aspirated and sent for analysis in addition to 1 L removed and sent for pleural fluid studies as well as cytology. Workup in the ED included T96.6, heart rate 99, BP 149/93, respiratory rate 13, 97% on room air with most recent repeat vitals heart rate 93, BP 167/99, respiratory rate 19, 99% on room air, CBC with WBC 10.6, hemoglobin 11, MCV 89.9, platelet 299 without marked shift, BMP with BUN/: 34/creatinine 1.35, GFR 38, glucose 110, BNP 2158, chest x-ray with cardiomegaly with right-sided pleural effusion, repeat chest x-ray following ED directed thoracentesis with cardiomegaly, small to moderate bilateral pleural effusions with atelectasis, no focal consolidation and initially commented that there was no evidence of any pneumothoraces however over read by radiology then noted small to moderate right pneumothorax, EKG with rate controlled atrial fibrillation with no acute evidence of ischemia. Chest tube specifically 8 Bhutanese thoracostomy tube placed in the anterior third intercostal space on the right per ED physician with follow-up chest x-ray following with noted interval placement small bore right chest tube projecting over the upper lateral right hemithorax, slight interval decrease in the size of the right pneumothorax with some patchy persistent opacities at the lung bases possibly atelectasis, small bilateral pleural effusions also remain. Pending thoracentesis labs including cytology upon evaluation of patient. [facility] Medical History HLD (hyperlipidemia) Parkinsons disease Atrial flutter Paroxysmal atrial fibrillation (HFpEF) heart failure with preserved ejection fraction (04/13/21) Left ventricular diastolic dysfunction Essential hypertension Breast cancer in female Abnormal mammogram of left breast Mobitz (type) I (Wenckebach's) atrioventricular block IBS (irritable bowel syndrome) Home Medications ?Medication ?Instructions ?Recorded ?Last Taken ?Type Curamed 1 tab PO DAILY supplement 11/03/18 Unknown History carbidopa 10 mg-levodopa 100 mg 1 tab PO TIDAC parkinsons 11/03/18 Unknown History tablet multivitamin 1 ea PO DAILY supplement 11/03/18 Unknown History loperamide 2 mg tablet (Imodium 2 mg PO Q6H PRN Diarrhea 02/07/21 Unknown History A-D) melatonin 3 mg capsule 3 mg PO HS PRN Insomnia 02/07/21 Unknown History metoprolol succinate 25 mg 25 mg PO DAILY htn #90 tabs 02/07/21 Unknown Rx tablet,extended release 24 hr apixaban 2.5 mg tablet (Eliquis) 2.5 mg PO BID #60 tabs 11/12/21 Unknown Rx acetaminophen 325 mg capsule 325 mg PO ONCE PRN fever or pain 05/06/22 Unknown History ascorbic acid (vitamin C) 1,000 mg 1 g PO Q6H 05/06/22 Unknown History tablet bisacodyl 10 mg rectal suppository 10 mg [place] DAILY PRN constipation 05/06/22 Unknown History calcium 600 mg (as carbonate)-vit tab PO 05/06/22 Unknown History D3 10 mcg (400 unit) chewable tablet (Calcium 600 with Vitamin D3) elderberry fruit 350 mg capsule mg PO 05/06/22 Unknown History magnesium hydroxide 400 mg/5 mL 5 ml PO DAILY PRN stomach upset 05/06/22 Unknown History oral suspension (Johnson Milk of Magnesia) sennosides 8.6 mg-docusate sodium 1 tab-cap PO QHS PRN constipation 05/06/22 Unknown History 50 mg tablet carboxymethylcellulose sodium 1 % 1 drp ophthalmic (eye) TID 10/24/22 Unknown History eye drops (Artificial Tears (carboxymethylcellulose)) erythromycin 5 mg/gram (0.5 %) eye 1 applic ophthalmic (eye) DAILY 10/24/22 Unknown History ointment vitamins A,C,D-ogqm-bxvryk 4,296 1 cap PO BID 10/24/22 Unknown History mcg-226 mg-90 mg capsule famotidine 20 mg tablet 20 mg PO BID PRN per PCP 06/12/23 Unknown History furosemide 40 mg tablet 40 mg PO DAILY #90 tabs 06/12/23 Unknown Rx lisinopril 20 mg tablet 10 mg (1/2 x 20 mg) PO DAILY htn 05/28/24 Unknown Rx #0 tabs lifitegrast 5 % eye drops in a 1 drp ophthalmic (eye) BID 06/18/24 Unknown History dropperette (Xiidra) vit C 250 mg-vit E 90 mg-zinc 40 1 tab PO BID 06/18/24 Unknown History mg-copper 1 ke-vojaat-mczyzj capsule (PreserVision AREDS-2) Allergy/AdvReac Type Severity Reaction Status Date / Time No Known Allergies Allergy Verified 06/17/24 19:28 Family History Mother Heart disease Father Heart disease chf Surgical History Status post partial mastectomy of left breast (11/10/18) History of bunionectomy of both great toes H/O lumpectomy History of left heart catheterization (12/06/16) Social History household members: none Smoking Status: Never smoker alcohol intake: never substance use type: does not use ROS ROS Narrative Admission Review of Systems: CONSTITUTIONAL: No weight loss, fever, chills, + weakness or fatigue. HEENT: Eyes: No visual loss, blurred vision, double vision or yellow sclerae. Ears, Nose, Throat: No hearing loss, sneezing, congestion, runny nose or sore throat. SKIN: No rash or itching, lesions, wounds. CARDIOVASCULAR: + Distal edema, orthopnea, chronic component. No chest pain, chest pressure or chest discomfort, palpitations, syncopal events. RESPIRATORY: + Dyspnea, worse with exertion. No marked cough or sputum, wheezing, hemoptysis. GASTROINTESTINAL: No anorexia, nausea, vomiting or diarrhea, abdominal pain, melena, BRBPR. GENITOURINARY: No dysuria, frequency, urgency or retention. NEUROLOGICAL: No headache, dizziness, syncope, paralysis, ataxia, numbness or tingling in the extremities, focal weakness, change in bowel or bladder control, seizure. MUSCULOSKELETAL:+ muscle, back pain, joint pain or stiffness. HEMATOLOGIC: + Chronic anemia, easy bleeding/bruising. LYMPHATICS: No enlarged nodes. No history of splenectomy. PSYCHIATRIC: + History of anxiety and depression. ENDOCRINOLOGIC: No reports of sweating, cold or heat intolerance. No polyuria or polydipsia. ALLERGIES: No history of asthma, hives, eczema or rhinitis. Vital Signs Vital Signs Vital Signs: 06/17/24 19:26 06/17/24 19:43 06/17/24 19:43 Temperature 96.6 F L 98.6 F Temperature Source Temporal Oral Pulse Rate 99 97 Respiratory Rate 13 16 Respiratory Effort Short of Breath Respiratory Pattern Normal Blood Pressure 149/93 H 158/86 H Blood Pressure Mean 111 110 Pulse Ox 97 97 Oxygen Delivery Method Room Air Room Air 06/17/24 20:00 06/17/24 21:00 06/17/24 22:00 Temperature Temperature Source Pulse Rate 104 H 97 106 H Respiratory Rate 21 H 18 14 Respiratory Effort Respiratory Pattern Blood Pressure 161/80 H 170/91 H 172/111 H Blood Pressure Mean 107 117 131 Pulse Ox 96 97 97 Oxygen Delivery Method Room Air Room Air Room Air 06/17/24 23:00 06/18/24 00:00 Temperature Temperature Source Pulse Rate 106 H 93 Respiratory Rate 14 19 H Respiratory Effort Respiratory Pattern Blood Pressure 162/92 H 167/99 H Blood Pressure Mean 115 121 Pulse Ox 98 99 Oxygen Delivery Method Room Air Room Air Physical Exam Narrative Physical Examination: General: Awake, alert, oriented to self, place and some recent events, does have underlying Parkinson disease, remains cooperative, seated upright in ED bed, fatigued, notes currently feeling well following recent procedure. Skin: Normal color, normal turgor, no icterus, no cyanosis except occasional stage ecchymoses, right upper chest status post chest tube placement with dressing in place with no drainage. HEENT: AT/NC, EOMI, PERRLA, MMM, no carotid bruits or marked JVD noted. Lungs: Mildly diminished, greater bases, right greater than left, no evidence any distress, right-sided chest tube in place, no markedly appreciated rales, ronchi or wheezing. Heart: Irregular, rate controlled; no gallop, rub audible. Abdomen: Soft, NTTP, ND, normal BS, no appreciated HSM. Extremities: No cyanosis, no clubbing, pedal to mid davies 1-2+ pitting edema. Neurological: Patient awake, alert, oriented as noted, cognitive function intact; pupils equally reactive to light and accommodation, cranial nerves grossly normal, moving all 4 extremities, no focal deficits, strength moderately to severely globally decreased primarily chronic component. Psychiatric: Affect appears mildly flat, fatigued, no acute evidence of depressive or anxiety feelings, but does have underlying history. Results Lab / Micro Data 06/17/24 20:40 06/17/24 20:40 Labs: Laboratory Results - last 24 hr 06/17/24 20:40: WBC 10.6, RBC 3.75 L, Hgb 11.0 L, Hct 33.7 L, MCV 89.9, MCH 29.3, MCHC 32.6, RDW Std Deviation 45.2 H, RDW Coeff of Tracie 13.7, Plt Count 299, MPV 10.2, Immature Gran % (Auto) 0.600, Neut % (Auto) 69.8, Lymph % (Auto) 18.1 L, Mcnairy % (Auto) 9.9, Eos % (Auto) 1.0, Baso % (Auto) 0.6, Absolute Neuts (auto) 7.4, Absolute Lymphs (auto) 1.91, Nucleated RBC % 0, Sodium 137, Potassium 4.2, Chloride 98, Carbon Dioxide 28.3, Anion Gap 10, BUN 34 H, Creatinine 1.35 H, Est GFR (MDRD) Non-Af 38 L, BUN/Creatinine Ratio 25.4 H, Glucose 110 H, Calcium 9.4, NT pro BNP II 2158 H 06/17/24 22:40: Fluid Source THORACENTESIS, Fluid Color YELLOW, Fluid Appearance CLEAR, Fluid pH Cancelled, Fluid WBC 0.145, Fluid Tot Cell Count 0.170 H, Fld Polynuclear WBCs # 0.008, Fld Polynuclear WBCs % 5.5, Fluid Mononuclear WBCs 0.137, Fld Mononuclear WBCs % 94.5, Fluid Total Protein 3.8, Fluid Comment 2 SEE COMMENT Micro: Microbiology 06/17/24 22:40 Fluid - Thoracentesis Fluid Gram Stain - Preliminary Imaging Radiology Impression Chest X-Ray 06/17/24 20:31 IMPRESSION: Cardiomegaly with right pleural effusion. Diagnostic and therapeutic thoracentesis is recommended if clinically indicated for further evaluation. Reading Location: [id number] Chest X-Ray 06/17/24 23:00 IMPRESSION: [id number] bilateral pleural effusions with atelectasis. Reading Location: [facility] Assessment & Plan Assessment/Plan (1) Pneumothorax, iatrogenic: (2) Pleural effusion, right: PLAN: Plan The patient is an 89 y/o F w/ PMHx: CKD stage III unclear subtype per GFR trending, HTN, GERD, Parkinson's disease, PAF/Flutter, Hx L sided breast CA, HFpEF, Chronic anemia who presents to the [facility] ED on 06/18/2024 with worsening dyspnea, notable with activity with known right-sided pleural effusion with chronic swelling in her lower extremities with history of previous left-sided breast cancer with no recent fevers or chills nor any specific weight loss or night sweats but given symptomatic prompted family to bring patient to the ED for evaluation. Patient did also report aside from dyspnea, worse with exertion and lower extremity swelling orthopnea also. Patient's daughter is a nurse practitioner and did discuss patient's history upon ED arrival with ED physician. #1. Dyspnea, worse with exertion secondary to significant right-sided pleural effusion status post-thoracentesis with resulting mild to moderate pneumothorax status post right-sided chest tube placement: Will admit to medical surgical floor, continue chest tube care per general surgery who discussed case with ED physician and was amenable, will plan repeat chest x-ray in a.m., encourage aggressive incentive spirometry, supplemental oxygen, pain regimen/antiemetic regimen as needed. Thoracentesis studies pending. Procalcitonin requested given noted findings on film, ? atelectasis versus infiltrate. #2. HFpEF: Most recent noted echocardiogram 12/04/2021 with normal LV size, normal LV systolic function, EF 60%, PASP 29 mmHg with structurally normal valves, given current presentation with significant effusion with pleural studies pending as noted will obtain echocardiogram, TSH/magnesium level requested, temporally holding Eliquis given recent procedure but resume within the next 24 hours, continue metoprolol, lisinopril, Lasix regimen, not on statin therapy. #3. History of breast cancer: Patient with history of previous left-sided breast cancer, status post partial mastectomy in 2019, had been considered in remission, some concern given presentation with significant pleural effusion is noted, pleural studies pending including cytology. #4. PAF/flutter: Given recent thoracentesis will temporally hold Eliquis, resume in the next 24 hours, continue metoprolol regimen. #5. Chronic Kidney Disease Stage III, unclear subtype per GFR trending: Admission BUN/Cr 34/1.35, GFR 38, baseline renal function 0.9-1.1, repeat BMP in AM. #6. Chronic normocytic anemia: Admission hemoglobin 11, MCV 89.9, baseline hemoglobin primarily 11-12 range, stable, continue to trend. #7. Hypertension: Continue home regimen including lisinopril, metoprolol, Lasix, PRN hydralazine. #8. Parkinson's disease with unclear dementia extent and unclear debility: We will continue patient home Sinemet regimen, complicates presentation, maintain on fall and aspiration precautions, PT/OT/case management consulted for discharge planning. #9. GERD: We will continue patient home famotidine regimen. #10. DVT prophylaxis: Temporarily holding Eliquis given recent procedure, resume in the next 24 hours. SCDs. #11. CODE status: DNR-CC per facility paperwork and confirmed with daughter. Charges/Coding Visit Charges Inpatient E&M: 26076 Init Hosp L3
[2024-06-18 00:30] LABS: Protein, Body Fluid 3.8 g/dL (Not Establ.)
[2024-06-18 00:32] LABS: Glucose, Body Fluid 126 mg/dL (Not Establ.)
--- NOTE | 2024-06-18 00:36 | ED.RN ---
Report given to [facility]. Talked with Pilar DOUGLAS about pt admission and time in ER. No further questions from RN.
[2024-06-18 00:37] LABS: Lymphocytes 10 %; Macrophages 90 %; Red Cell Count/Body Fluid 25 /mm3
--- NOTE | 2024-06-18 01:27 | ECHOD_ITS ---
Reason For Study Reason For Study: CHF Procedure This was a 2D Doppler, Color Flow transthoracic echocardiogram. The study was technically difficult. PT had difficulty with probe pressure. exam performed supine due to SOB. Exam performed in department. Left Ventricle Normal LV size. Left ventricular systolic function is normal. The left ventricular ejection fraction is 60 %. No regional wall motion abnormalities noted. Right Ventricle Normal RV size. Normal systolic function. Atria Normal left atrium. Normal right atrium. Mitral Valve Normal mitral valve. Mild (1+) eccentric mitral valve insufficiency. Tricuspid Valve Normal tricuspid valve. Aortic Valve Trisinus/trileaflet aortic valve. Mild focal aortic valve calcification. Pulmonic Valve Normal pulmonic valve. Great Vessels Normal aortic root. The pulmonary artery is normal size. Inferior vena cava collapse with respiration. Pericardium/Pleural No pericardial effusion. MMode/2D Measurements & Calculations LVIDd: 3.8 cm IVSd: 0.84 cm Ao root diam: 3.1 cm LVIDs: 2.2 cm LVPWd: 0.93 cm RVDd: 2.5 cm FS: 43.6 % LAV(MOD-bp): 62.3 ml LVAd ap4: 16.8 cm2 SV(MOD-sp4): 22.1 ml LAV(MOD-bp) Indexed: 37.8 ml/m2 LVLd ap4: 6.3 cm SI(MOD-sp4): 13.4 ml/m2 LAV(MOD-sp2): 46.5 ml EDV(MOD-sp4): 38.2 ml LAV(MOD-sp4): 49.4 ml EDV(sp4-el): 37.7 ml LVAs ap4: 10.0 cm2 LVLs ap4: 5.4 cm ESV(MOD-sp4): 16.0 ml ESV(sp4-el): 15.7 ml EF(MOD-sp4): 58.0 % EF(sp4-el): 58.4 % SV(sp4-el): 22.0 ml LA A4 area: 19.9 cm2 LA dimension(2D): 3.6 cm TAPSE: 1.3 cm Doppler Measurements & Calculations MV E max debbie: 109.0 cm/sec Ao V2 max: 95.3 cm/sec LV V1 max: 61.8 cm/sec Ao max P.6 mmHg LV V1 max P.5 mmHg Ao V2 mean: 70.6 cm/sec LV V1 mean P.93 mmHg Ao mean P.2 mmHg LV V1 mean: 46.4 cm/sec Ao V2 VTI: 18.5 cm LV V1 VTI: 12.0 cm AV (velocity ratio): 0.65 PA V2 max: 64.5 cm/sec TR max debbie: 266.7 cm/sec TR max P.5 mmHg ECHO/Echo Complete Interpretation Summary Normal LV size. Left ventricular systolic function is normal. The left ventricular ejection fraction is 60 %. Mild focal aortic valve calcification. Ordering Physician: Julia Faith Referring Physician: Prabhjot Skelton Performed By: Marita White, KAVIN, RVT
[2024-06-18 01:32] LABS: Magnesium 2.3 mg/dL (1.5-2.2)
[2024-06-18 02:48] LABS: Procalcitonin 0.07 ng/mL (<=0.10)
[2024-06-18 04:42] LABS: Absolute Lymphocyte Count 1.39 X10^3/uL (0.83-4.51); Absolute Neutrophil Count 12.4 X10^3/uL (2.0-7.7); Basophil# 0.05 X10^3/uL; Basophil% 0.3 % (0-1); Eosinophil# 0.06 X10^3/uL; Eosinophils% 0.4 % (0-5); Hematocrit 36.3 % (37-47); Hemoglobin 11.8 g/dL (12.0-15.0); Lymphocyte # 1.39 X10^3/ul (0.83-4.51); Lymphocyte % 9.4 % (19-41); Mean Corp Hgb Conc 32.5 g/dL (32-36); Mean Corpuscular Hgb 29.1 pg (27.0-32.0); Mean Corpuscular Volume 89.6 fL (81-99); Monocyte% 6.1 % (0-10); NRBC Flagged by Analyzer 0 % (0-5); Neutrophil # 12.38 X10^3/uL (2.7-7.7); Neutrophil % 83.3 % (47-70); Platelet Count 331 K/mm3 (150-450); RBC Distribution Width CV 13.6 % (11.6-14.6); RBC Distribution Width SD 44.5 fl (35.1-43.9); Red Blood Count 4.05 M/mm3 (4.2-5.4); White Blood Count 14.9 K/mm3 (4.4-11.0)
[2024-06-18 05:19] LABS: ALB/GLOB Ratio 0.9 RATIO (0.9-2.4); AST(SGOT) 20 U/L (<=31); Alanine Aminotransfer ALT/SGPT 12 U/L (<=34); Albumin, Serum 3.7 g/dL (3.4-4.8); Alkaline Phosphatase 122 U/L (35-104); Anion Gap 12 (5-15); BUN 29 mg/dL (4-19); Calcium,Total 9.2 mg/dL (7.6-11.0); Carbon Dioxide 26.2 mmol/L (21.0-32.0); Chloride 100 mmol/L (98-108); Creatinine, Serum 1.25 mg/dL (0.70-1.20); EST Glomerular Filtration Rate 41 (>60); Estimated Creatinine Clearance 27.94 ml/min (50-250); Globulin 3.9 g/dL (2.2-4.2); Glucose 133 mg/dL (70-99); Potassium 4.1 mmol/L (3.3-5.1); Protein, Total 7.6 g/dL (5.9-8.4); Sodium Level 138 mmol/L (133-145); Total Bilirubin 0.56 mg/dL (0.00-1.30)
[2024-06-18] MEDS: Glycerin/Hypromellose/PEG400 15 ml Bottle 1 DRP OPHTHALMIC ×3 (05:45→21:54)
[2024-06-18] MEDS: Carbidopa/Levodopa 10/100 Tablet PO ×3 (05:52→16:56)
--- NOTE | 2024-06-18 05:55 | RAD_ITS ---
PROCEDURE: Portable upright chest radiograph, one view 06/18/2024 REASON FOR EXAM: Pneumothorax TECHNIQUE: Portable upright chest radiograph, one view COMPARISON: 06/17/2024 FINDINGS: Bones are osteopenic. Cardiomediastinal silhouette is similar. A small bore right chest tube remains in place. Continued decrease in size of right pneumothorax, now measuring 5 mm at the right apex. No left pneumothorax. There are patchy opacities at the lung bases, similar to slightly worse on the right, but improved on the left. Probable tiny left and small right pleural effusions. RAD/Chest 1 View (Portable) IMPRESSION: Similar position of small bore right chest tube. Smaller right pneumothorax, w ith 5 mm of pleural separation at the apex on the current study, compared to 3 cm on the prior study. Patchy opacities at the lung bases, slightly worsened on the right and improved on the left, which may represent areas of pneumonia/atelectasis. There are small right and tiny left pleural effusions. Recommend continued radiologic follow-up to document resolution. Reading Location[facility]
[2024-06-18] MEDS: 0.9% Saline Lock 10 ML Syringe IV (05:58)
--- NOTE | 2024-06-18 07:55 | EX.PCM.CON.S ---
Assessment & Plan Assessment/Plan (1) Pneumothorax, iatrogenic: PLAN: Patient 89-year-old female who is admitted for management of iatrogenic pneumothorax after thoracentesis by emergency medicine for right pleural effusion. According to emergency medicine the effusion appears to be secondary to a transudative process rather than their concern for a connection to patient's prior history of breast cancer. Patient also does have a history of heart failure so this is a potential etiology. Nevertheless, given the presence of the pneumothorax patient underwent chest tube placement with emergency medicine and the chest tube was connected to a Heimlich valve. Without negative pressure apart from that generated by patient's normal respiratory effort the pneumothorax does appear significantly improved with this intervention. Still, however, there is a small pneumothorax going on this morning's chest x-ray. Thus it is my recommendation to apply suction (-20 cmH2O) to the distal end of the Heimlich valve to try to resolve the pneumothorax. While this valve can impede suction the small amount of progress that would be needed to get complete reexpansion and suggest that should be successful. I have requested repeat chest x-ray than tomorrow morning. Further management per Dr. Van who will be covering, however, hopefully there will be no signs of pneumothorax nor airleak and we can begin measures for chest tube removal and plans for discharge. Sung Gamino MD General Surgery Endocrine Surgery Pager: [facility] [address] [place] [address], [address] [place] [id number] Office: [phone] HPI Consult Data Date of Consult: 06/18/24 HPI Narrative Reason for Consultation: Right-sided pneumothorax HPI Narrative: GARY CYR, is a 89 F who presented to [facility] with a diagnosed right pleural effusion. This was confirmed on chest x-ray and patient underwent thoracentesis by emergency medicine. Although emergency medicine stay the procedure was conducted uneventfully patient sustained a moderate pneumothorax following the procedure and thus emergency medicine placed a small bore chest tube to manage the resultant pneumothorax. I was contacted to assist with management. Initially I was asked to see patient as a outpatient, however, I recommended inpatient admission given patient's age, time of day, and the concurrent use of anticoagulation. Patient has thus been admitted to the hospitalist service. On evaluation patient denies any shortness of breath or labored breathing but she seems unsure of her ability to report accurately. She continues to ask me to reach out to her family for more definitive history. According to the EMR patient has a history of pleural effusions but patient is unaware of any prior procedures to drain pleural fluid [facility] Medical History HLD (hyperlipidemia) Parkinsons disease Atrial flutter Paroxysmal atrial fibrillation (HFpEF) heart failure with preserved ejection fraction (04/13/21) Left ventricular diastolic dysfunction Essential hypertension Breast cancer in female Abnormal mammogram of left breast Mobitz (type) I (Wenckebach's) atrioventricular block IBS (irritable bowel syndrome) Home Medications ?Medication ?Instructions ?Recorded ?Last Taken ?Type Curamed 1 tab PO DAILY supplement 11/03/18 06/17/24 History carbidopa 10 mg-levodopa 100 mg 1 tab PO TIDAC parkinsons 11/03/18 06/17/24 History tablet multivitamin 1 ea PO DAILY supplement 11/03/18 06/17/24 History loperamide 2 mg tablet (Imodium 2 mg PO DAILY PRN loose stools 02/07/21 06/13/24 History A-D) melatonin 3 mg capsule 3 mg PO HS PRN Insomnia 02/07/21 06/16/24 History metoprolol succinate 25 mg 25 mg PO DAILY htn #90 tabs 02/07/21 06/17/24 Rx tablet,extended release 24 hr apixaban 2.5 mg tablet (Eliquis) 2.5 mg PO BID #60 tabs 11/12/21 06/17/24 Rx acetaminophen 325 mg capsule 650 mg PO DAILY PRN general 05/06/22 06/17/24 History discomfort ascorbic acid (vitamin C) 1,000 mg 1 g PO DAILY supplementation 05/06/22 06/17/24 History tablet bisacodyl 10 mg rectal suppository 10 mg [place] DAILY PRN constipation 05/06/22 Unknown History calcium 600 mg (as carbonate)-vit 1 tab PO BID supplementation 05/06/22 06/17/24 History D3 10 mcg (400 unit) chewable tablet (Calcium 600 with Vitamin D3) elderberry fruit 350 mg capsule 350 mg PO DAILY supplement 05/06/22 06/17/24 History magnesium hydroxide 400 mg/5 mL 30 ml PO DAILY PRN stomach upset 05/06/22 Unknown History oral suspension (Johnson Milk of Magnesia) sennosides 8.6 mg-docusate sodium 1 tab-cap PO QHS PRN constipation 05/06/22 Unknown History 50 mg tablet carboxymethylcellulose sodium 1 % 1 drp ophthalmic (eye) TID dry eyes 10/24/22 06/17/24 History eye drops (Artificial Tears (carboxymethylcellulose)) famotidine 20 mg tablet 20 mg PO BID PRN acid reflux 06/12/23 Unknown History furosemide 40 mg tablet 40 mg PO DAILY #90 tabs 06/12/23 06/17/24 Rx lisinopril 20 mg tablet 10 mg (1/2 x 20 mg) PO DAILY htn 05/28/24 06/17/24 Rx #0 tabs acetaminophen 500 mg capsule 1,000 mg PO Q6H PRN pain 06/18/24 06/16/24 History lifitegrast 5 % eye drops in a 1 drp ophthalmic (eye) BID 06/18/24 06/17/24 History dropperette (Xiidra) nonexudative age-related macular degeneration vit C 250 mg-vit E 90 mg-zinc 40 1 tab PO BID supplementation 06/18/24 06/17/24 History mg-copper 1 [id number] capsule (PreserVision AREDS-2) Allergy/AdvReac Type Severity Reaction Status Date / Time No Known Allergies Allergy Verified 06/17/24 19:28 Family History Mother Heart disease Father Heart disease chf Surgical History Status post partial mastectomy of left breast (11/10/18) History of bunionectomy of both great toes H/O lumpectomy History of left heart catheterization (12/06/16) Social History household members: none Smoking Status: Never smoker alcohol intake: never substance use type: does not use Physical Exam Const alert, oriented x3 and no apparent distress Constitutional Narrative: Patient is hard of hearing and seems uncertain with her responses General Appearance: frail Chest Chest Narrative: Patient with small bore chest tube to right upper chest wall along midclavicular line. There is no surrounding crepitus. Chest tube is connected to a Heimlich valve but no suction. There is no kinking of the tubing as it is crawling around and adhered to a dressing about the chest tube insertion site. Resp normal respiratory effort Lab / Micro Data 06/18/24 04:21 06/18/24 04:21 Labs: Laboratory Results - last 24 hr 06/17/24 20:40: WBC 10.6, RBC 3.75 L, Hgb 11.0 L, Hct 33.7 L, MCV 89.9, MCH 29.3, MCHC 32.6, RDW Std Deviation 45.2 H, RDW Coeff of Tracie 13.7, Plt Count 299, MPV 10.2, Immature Gran % (Auto) 0.600, Neut % (Auto) 69.8, Lymph % (Auto) 18.1 L, Knott % (Auto) 9.9, Eos % (Auto) 1.0, Baso % (Auto) 0.6, Absolute Neuts (auto) 7.4, Absolute Lymphs (auto) 1.91, Nucleated RBC % 0, Sodium 137, Potassium 4.2, Chloride 98, Carbon Dioxide 28.3, Anion Gap 10, BUN 34 H, Creatinine 1.35 H, Est GFR (MDRD) Non-Af 38 L, BUN/Creatinine Ratio 25.4 H, Glucose 110 H, Calcium 9.4, Magnesium 2.3 H, NT pro BNP II 2158 H, Procalcitonin 0.07 06/17/24 22:40: Fluid Source THORACENTESIS, Fluid Color YELLOW, Fluid Appearance CLEAR, Fluid pH Cancelled, Fluid WBC 0.145, Fluid RBC 25, Fluid Tot Cell Count 0.170 H, Fld Polynuclear WBCs # 0.008, Fld Polynuclear WBCs % 5.5, Fluid Mononuclear WBCs 0.137, Fld Mononuclear WBCs % 94.5, Fluid Lymphocytes 10, Fluid Macrophages 90, Fl Pathologist Comment May follow, Fluid Glucose 126, Fluid Total Protein 3.8, Fluid Comment 2 SEE COMMENT 06/18/24 04:21: WBC 14.9 H, RBC 4.05 L, Hgb 11.8 L, Hct 36.3 L, MCV 89.6, MCH 29.1, MCHC 32.5, RDW Std Deviation 44.5 H, RDW Coeff of Tracie 13.6, Plt Count 331, MPV 10.0, Immature Gran % (Auto) 0.500, Neut % (Auto) 83.3 H, Lymph % (Auto) 9.4 L, Knott % (Auto) 6.1, Eos % (Auto) 0.4, Baso % (Auto) 0.3, Absolute Neuts (auto) 12.4 H, Absolute Lymphs (auto) 1.39, Nucleated RBC % 0, Sodium 138, Potassium 4.1, Chloride 100, Carbon Dioxide 26.2, Anion Gap 12, BUN 29 H, Creatinine 1.25 H, Estim Creat Clear Calc 27.94 L, Est GFR (MDRD) Non-Af 41 L, BUN/Creatinine Ratio 23.0 H, Glucose 133 H, Calcium 9.2, Total Bilirubin 0.56, AST 20, ALT 12, Alkaline Phosphatase 122 H, Total Protein 7.6, Albumin 3.7, Globulin 3.9, Albumin/Globulin Ratio 0.9, TSH 1.440 Micro: Microbiology 06/17/24 22:40 Fluid - Thoracentesis Fluid Gram Stain - Preliminary Imaging Radiology Impression Chest X-Ray 06/17/24 20:31 IMPRESSION: Cardiomegaly with right pleural effusion. Diagnostic and therapeutic thoracentesis is recommended if clinically indicated for further evaluation. Reading Location: [facility] Chest X-Ray 06/17/24 23:00 IMPRESSION: [id number] bilateral pleural effusions with atelectasis. [facility] Chest X-Ray 06/17/24 23:50 IMPRESSION: Interval placement small bore right chest tube, projecting over the upper lateral right blaine thorax. Slight interval decrease in size of the right pneumothorax as above. There are some persistent patchy opacities at the lung bases, which could be due to atelectasis or pneumonia. Small bilateral pleural effusions also remain. Recommend continued radiologic follow-up to document resolution. Reading [facility] Chest X-Ray 06/18/24 05:55 IMPRESSION: Similar position of small bore right chest tube. Smaller right pneumothorax, with 5 mm of pleural separation at the apex on the current study, compared to 3 cm on the prior study. Patchy opacities at the lung bases, slightly worsened on the right and improved on the left, which may represent areas of pneumonia/atelectasis. There are small right and tiny left pleural effusions. Recommend continued radiologic follow-up to document resolution. Reading Location: [facility] Charges/Coding Visit Charges Inpatient E&M: 85043 Init Hosp L2
[2024-06-18] MEDS: Menthol/Lanolin/Calamine/Znox 113 GM Tube 1 APPLIC TOPICAL ×4 (10:13→21:55)
[2024-06-18] MEDS: Ensure Plus High Protein 120 ML LIQUID PO ×3 (10:13→16:57)
[2024-06-18] MEDS: Metoprolol(XL)Succ 25 MG Tablet PO (10:14)
[2024-06-18] MEDS: Furosemide 40 MG Tablet PO (10:15)
[2024-06-18] MEDS: Erythromycin Base 1 OPTH.TUBE 1 APPLIC OPHTHALMIC (10:15)
[2024-06-18] MEDS: Lisinopril 10 MG Tablet PO (10:15)
--- NOTE | 2024-06-18 11:58 | CASEMGMT ---
Discharge Planning Updates sent to [facility]. Fabby Torres DC Planning Asst.
[2024-06-18] MEDS: Acetaminophen 325 MG Tablet 650 MG PO (13:48)
--- NOTE | 2024-06-18 14:00 | CASEMGMT ---
Social Work SW met with pt and with pt's dgt Elise. Pt currently lives at the [facility] in the Assisted Living. SW reviewed therapy notes with pt dgt and discussed return to [place] vs going to SNF for short term stay under Medicare benefit. Elise declines need for SNF list stating if pt needs SNF, they would prefer [facility]. Referral sent to [facility] and [facility]NE spoke with admission coordinator Danna. [facility] feels pt would best be suited in SNF at this time for short term rehab prior to return to [place]. SW spoke with dgt Elise and she is agreeable to this. Pt to be here over the weekend with admission to [facility] SNF on Friday if medically ready. Plan: [facility], can admit on Friday if medically ready. RUPALI Osborn
--- NOTE | 2024-06-18 15:50 | PCM.HOSP.N ---
Hospitalist Note Patient was seen and examined today, she was admitted early this morning for an iatrogenic pneumothorax from a thoracentesis performed in the emergency room. Patient appears fatigued, family was in the room and I discussed discharge planning with him, I think it is a good idea for the patient to go to a skilled facility for short-term rehab services-she is currently in assisted living. I talked to the family about this. Also talked briefly with general surgery about her care
[2024-06-19 05:49] VITALS: BP 145/73; PULSE 114; RESP 18; TEMP 36.8; O2SAT 97
[2024-06-19] MEDS: Glycerin/Hypromellose/PEG400 15 ml Bottle 1 DRP OPHTHALMIC ×3 (05:58→20:41)
[2024-06-19] MEDS: Carbidopa/Levodopa 10/100 Tablet PO ×3 (05:58→16:48)
[2024-06-19 06:00] VITALS: BMI 20.5
--- NOTE | 2024-06-19 07:05 | RAD_ITS ---
PROCEDURE: CHEST 1 VIEW (PORTABLE) 06/19/2024 REASON FOR EXAM: 89-year-old female, follow-up pneumothorax. TECHNIQUE: Frontal view of the chest. COMPARISON: Chest radiograph 06/18/2024. FINDINGS: Hardware: Similar right upper lung chest tube. Heart: Cardiac and mediastinal contours are stable. Lungs: Nonvisualization of the previous tiny right apical pneumothorax. Trace left and small right pleural effusions. Bones: Degenerative changes are identified within the thoracic spine. RAD/Chest 1 View (Portable) IMPRESSION: Nonvisualization of the previous tiny right apical pneumothorax, with right belinda st tube in place. Stable trace left and small right pleural effusions. Reading Location: [id number]
--- NOTE | 2024-06-19 08:21 | PN.SURG_ITS ---
Subjective Subjective Patient's chest x-ray did does not appear to have any pneumothorax on suction. Patient denies any issues or problems breathing. Objective Data Objective Data Vital Signs: Vital Signs Temp Pulse Resp BP Pulse Ox O2 Del Method 98.3 F 114 H 18 145/73 H 97 Room Air 06/19/24 05:49 06/19/24 05:49 06/19/24 05:49 06/19/24 05:49 06/19/24 05:49 06/19/24 07:19 Oxygen Delivery Method Room Air Weight: 128 lb 1.417 oz Body Mass Index (BMI) 20.5 Intake & Output: Intake and Output for Last 24 Hours 06/17/24 06/18/24 06/19/24 23:59 23:59 23:59 Intake Total 1250 / 1250 Output Total 40 / 40 320 / 320 Balance 1210 / 1210 -320 / -320 Lab / Micro Data 06/18/24 04:21 06/18/24 04:21 Micro: Microbiology 06/17/24 22:40 Fluid - Thoracentesis Fluid Gram Stain - Final 06/17/24 22:40 Fluid - Thoracentesis Fluid Body Fluid Culture - Preliminary No growth-Final to follow Radiography Diagnostic Testing: Radiology Impression Echocardiogram 06/18/24 01:27 Interpretation Summary Normal LV size. Left ventricular systolic function is normal. The left ventricular ejection fraction is 60 %. Mild focal aortic valve calcification. Ordering Physician: Julia Faith Referring Physician: Prabhjot Skelton Performed By: Marita White, RDCS, RVT Physical Exam Const oriented x3 and no apparent distress Resp normal respiratory effort Resp Narrative: Right percutaneous chest tube in place, to suction no leak Assessment & Plan Assessment/Plan (1) Pneumothorax, iatrogenic: PLAN: Patient 89-year-old female who is admitted for management of iatrogenic pneumothorax after thoracentesis by emergency medicine for right pleural effusion. On my read of chest x-ray there is no pneumothorax, no airleak will turn off the stopcock to the percutaneous chest tube and get a chest x-ray in 4 hours. If no pneumo on CXR could possibly pull tube later today. And repeat chest x-ray. Radha Van M.D. Pager: [phone] [facility] [address] [place] [address], [facility], [address] [place] [address] Office: [phone] Charges/Coding Visit Charges Inpatient E&M: 15677 Subs Hosp L2
[2024-06-19 08:50] VITALS: BP 93/45; PULSE 99; RESP 18; TEMP 36.6; O2SAT 94
[2024-06-19 09:14] VITALS: BP 93/45; PULSE 99
[2024-06-19] MEDS: Metoprolol(XL)Succ 25 MG Tablet PO (09:14)
[2024-06-19] MEDS: Ensure Plus High Protein 120 ML LIQUID PO ×3 (09:14→16:54)
[2024-06-19] MEDS: Menthol/Lanolin/Calamine/Znox 113 GM Tube 1 APPLIC TOPICAL ×4 (09:15→20:40)
[2024-06-19] MEDS: Erythromycin Base 1 OPTH.TUBE 1 APPLIC OPHTHALMIC (09:17)
--- NOTE | 2024-06-19 09:58 | PCM.PN.HOSP ---
Reason for Visit Reason for Visit: Diagnoses Pleural effusion, not elsewhere classified (06/18/24) Postprocedural pneumothorax (06/18/24) Subjective Subjective Patient was seen and examined today, her blood pressure is running low today so I have elected to hold her Zestril and Lasix. Patient does not appear to be in any distress at rest, pulse ox is 94% on room air. Patient's daughter was in the room at the time my examination Objective Data Objective Data Vital Signs: Vital Signs Temp Pulse Resp BP Pulse Ox O2 Del Method 98 F 99 18 93/45 L 94 Room Air 06/19/24 08:50 06/19/24 09:14 06/19/24 08:50 06/19/24 09:14 06/19/24 08:50 06/19/24 08:56 Oxygen Delivery Method Room Air Weight: 58.1 kg Body Mass Index (BMI) 20.5 Intake & Output: Intake and Output for Last 24 Hours 06/17/24 06/18/24 06/19/24 23:59 23:59 23:59 Intake Total 1250 / 1250 Output Total 40 / 40 320 / 320 Balance 1210 / 1210 -320 / -320 Lab / Micro Data 06/18/24 04:21 06/18/24 04:21 Micro: Microbiology 06/17/24 22:40 Fluid - Thoracentesis Fluid Gram Stain - Final 06/17/24 22:40 Fluid - Thoracentesis Fluid Body Fluid Culture - Preliminary No growth-Final to follow Radiography Diagnostic Testing: Radiology Impression Echocardiogram 06/18/24 01:27 Interpretation Summary Normal LV size. Left ventricular systolic function is normal. The left ventricular ejection fraction is 60 %. Mild focal aortic valve calcification. Ordering Physician: Julia Faith Referring Physician: Prabhjot Skelton Performed By: Marita White, TATIANNACS, RVT Chest X-Ray 06/19/24 07:05 IMPRESSION: Nonvisualization of the previous tiny right apical pneumothorax, with right chest tube in place. Stable trace left and small right pleural effusions. Reading Location: [facility] Physical Exam Const alert and no apparent distress Constitutional Narrative: Patient appears frail General Appearance: cooperative, well kempt and well developed Orientation / Consciousness: awake, oriented to person and oriented to place HEENT normocephalic, head/scalp atraumatic and moist oral mucous membranes Eyes PERRL, EOMs intact bilaterally and conjunctivae normal Neck supple, no JVD, thyroid normal and no carotid bruits General: trachea midline Resp normal respiratory effort, no retractions, no use of accessory muscles and clear to auscultation bilaterally Resp Narrative: Right-sided chest tube is in place Auscultation: Negative for rales, rhonchi or wheezes Cardio no murmurs, no rub and no gallops Cardio Narrative: Heart rate and rhythm is irregular GI normal to inspection, nondistended, normoactive bowel sounds, soft to palpation, non-tender and non-distended Extremity no clubbing, cyanosis or edema Skin no rashes or lesions noted General Skin Exam: no breakdown Neuro CN's II-XII intact bilaterally, moves all extremities, no focal motor deficits and no sensory deficits noted Sensorium / Orientation: awake, alert, oriented to person and oriented to place Speech: speech normal Psych Psych Narrative: Patient has a flat affect Assessment & Plan Assessment/Plan (1) Pneumothorax, iatrogenic: PLAN: Plan 1. Iatrogenic pneumothorax-General Surgery is participating in her care chest tube is to waterseal currently, surgery wrote that she could possibly have the tube out this afternoon if the pneumothorax was still resolved. #2 chronic atrial fibrillation-patient is currently on metoprolol, her Eliquis is being held for now #3 Parkinson's disease-complicates care, management, recovery, and prognosis #4 right pleural effusion-secondary to chronic congestive heart failure with preserved ejection fraction #5 chronic congestive heart failure with preserved ejection fraction-patient is on Lasix, lisinopril, and metoprolol Total clinical time spent by myself addressing the patient's medical issues, reviewing all of her data, collaborating with patient's care team: 35 minutes Charges/Coding Visit Charges Inpatient E&M: 53426 Subs Hosp L2
[2024-06-19 11:32] VITALS: BP 105/57; PULSE 89; RESP 16; TEMP 36.8; O2SAT 94
--- NOTE | 2024-06-19 12:20 | RAD_ITS ---
PROCEDURE: CHEST 1 VIEW (PORTABLE) 06/19/2024 REASON FOR EXAM: 89-year-old female, chest tube. Follow-up pneumothorax. TECHNIQUE: Frontal view of the chest. COMPARISON: Chest radiograph earlier same day. FINDINGS: Hardware: Stable right upper lung chest tube. Heart: Cardiac and mediastinal contours are stable. Lungs: Nonvisualization of the previous trace right apical pneumothorax. Increased size of the now moderate right pleural effusion. No left pleural effusion. Bones: Degenerative changes are identified within the thoracic spine. RAD/Chest 1 View (Portable) IMPRESSION: Stable right upper lung chest tube. Nonvisualization of the trace right apical pneumothorax. Increased size of the now moderate right pleural effusion. Reading Location: [id number]
[2024-06-19] MEDS: Loperamide 2 MG Capsule PO ×2 (12:41→20:39)
[2024-06-19 14:54] VITALS: BP 137/84; PULSE 98; RESP 16; TEMP 36.7; O2SAT 96
[2024-06-19] MEDS: Acetaminophen 500 MG Tablet 1000 MG PO ×2 (14:57→20:40)
--- NOTE | 2024-06-19 17:20 | RAD_ITS ---
PROCEDURE: CHEST 1 VIEW (PORTABLE) 06/19/2024 REASON FOR EXAM: CHEST TUBE REMOVED AT 1515 TECHNIQUE: Frontal view of the chest. COMPARISON: Earlier same day FINDINGS: Right-sided chest tube has been removed. No developing pneumothorax. Stable pleural effusion on the right. Left lung remains stable RAD/Chest 1 View (Portable) IMPRESSION: Chest tube removed. No developing pneumothorax Reading Location: [id number]
[2024-06-19 20:44] VITALS: BP 124/65; PULSE 94; RESP 18; TEMP 36.8; O2SAT 97
[2024-06-20 04:40] VITALS: BP 164/86; PULSE 68; RESP 18; TEMP 36.8; O2SAT 98
[2024-06-20] MEDS: Glycerin/Hypromellose/PEG400 15 ml Bottle 1 DRP OPHTHALMIC ×3 (04:42→21:34)
[2024-06-20] MEDS: Acetaminophen 500 MG Tablet 1000 MG PO ×3 (04:42→21:34)
[2024-06-20] MEDS: Carbidopa/Levodopa 10/100 Tablet PO ×3 (04:42→16:29)
[2024-06-20 05:37] VITALS: BMI 20.5
--- NOTE | 2024-06-20 08:22 | PCM.PN.SRG ---
Subjective Subjective Final chest x-ray showed no pneumothorax after chest tube pulled yesterday. Dressing in place Objective Data Objective Data Vital Signs: Vital Signs Temp Pulse Resp BP Pulse Ox O2 Del Method 98.2 F 68 18 164/86 H 98 Room Air 06/20/24 04:40 06/20/24 04:40 06/20/24 04:40 06/20/24 04:40 06/20/24 04:40 06/20/24 07:59 Oxygen Delivery Method Room Air Weight: 127 lb 13.89 oz Body Mass Index (BMI) 20.5 Intake & Output: Intake and Output for Last 24 Hours 06/18/24 06/19/24 06/20/24 23:59 23:59 23:59 Intake Total 1250 / 1250 450 / 450 Output Total 40 / 40 320 / 320 Balance 1210 / 1210 130 / 130 Lab / Micro Data 06/18/24 04:21 06/18/24 04:21 Micro: Microbiology 06/17/24 22:40 Fluid - Thoracentesis Fluid Gram Stain - Final 06/17/24 22:40 Fluid - Thoracentesis Fluid Body Fluid Culture - Preliminary No growth-Final to follow Radiography Diagnostic Testing: Radiology Impression Chest X-Ray 06/19/24 07:05 IMPRESSION: Nonvisualization of the previous tiny right apical pneumothorax, with right chest tube in place. Stable trace left and small right pleural effusions. Reading Location: [facility] Chest X-Ray 06/19/24 12:20 IMPRESSION: Stable right upper lung chest tube. Nonvisualization of the trace right apical pneumothorax. Increased size of the now moderate right pleural effusion. Reading Location: [facility] Chest X-Ray 06/19/24 17:20 IMPRESSION: Chest tube removed. No developing pneumothorax Reading Location: [facility] Physical Exam Const oriented x3 and no apparent distress Resp normal respiratory effort Resp Narrative: Dressing in place over chest tube site Assessment & Plan Assessment/Plan (1) Pneumothorax, iatrogenic: PLAN: Patient 89-year-old female who is admitted for management of iatrogenic pneumothorax after thoracentesis by emergency medicine for right pleural effusion. Patient's x-ray showed no pneumothorax after chest tube pulled yesterday. Dressing in place. Follow-up as needed. Radha Van M.D. Pager: [phone] [facility] [address] [place] [address], [address] [place] [address] Office: [phone] Charges/Coding Multi Select Codes Visit Charges Visit Charges: 08423 Subs Hosp L2
[2024-06-20 09:26] VITALS: BP 97/47; PULSE 94; RESP 16; TEMP 36.5; O2SAT 94
[2024-06-20 09:34] VITALS: BP 97/47; PULSE 94
[2024-06-20] MEDS: Erythromycin Base 1 OPTH.TUBE 1 APPLIC OPHTHALMIC (09:34)
[2024-06-20] MEDS: Metoprolol(XL)Succ 25 MG Tablet PO (09:34)
[2024-06-20] MEDS: Ensure Plus High Protein 120 ML LIQUID PO ×2 (09:34→15:03)
[2024-06-20] MEDS: Menthol/Lanolin/Calamine/Znox 113 GM Tube 1 APPLIC TOPICAL ×2 (09:35→21:34)
--- NOTE | 2024-06-20 11:29 | PN.HOSP_ITS ---
Reason for Visit Reason for Visit: Diagnoses Pleural effusion, not elsewhere classified (06/18/24) Postprocedural pneumothorax (06/18/24) Subjective Subjective Patient was seen and examined today, she appears more alert, daughter is in the room at the time my examination. Objective Data Objective Data Vital Signs: Vital Signs Temp Pulse Resp BP Pulse Ox O2 Del Method 97.7 F L 94 16 97/47 L 94 Room Air 06/20/24 09:26 06/20/24 09:34 06/20/24 09:26 06/20/24 09:34 06/20/24 09:26 06/20/24 09:27 Oxygen Delivery Method Room Air Weight: 58 kg Body Mass Index (BMI) 20.5 Intake & Output: Intake and Output for Last 24 Hours 06/18/24 06/19/24 06/20/24 23:59 23:59 23:59 Intake Total 1250 / 1250 450 / 450 Output Total 40 / 40 320 / 320 Balance 1210 / 1210 130 / 130 Lab / Micro Data 06/18/24 04:21 06/18/24 04:21 Micro: Microbiology 06/17/24 22:40 Fluid - Thoracentesis Fluid Gram Stain - Final 06/17/24 22:40 Fluid - Thoracentesis Fluid Body Fluid Culture - Preliminary No growth-Final to follow 06/17/24 22:40 Fluid - Thoracentesis Fluid Anaerobic Culture - Preliminary Radiography Diagnostic Testing: Radiology Impression Chest X-Ray 06/19/24 12:20 IMPRESSION: Stable right upper lung chest tube. Nonvisualization of the trace right apical pneumothorax. Increased size of the now moderate right pleural effusion. Reading Location: [facility] Chest X-Ray 06/19/24 17:20 IMPRESSION: Chest tube removed. No developing pneumothorax Reading Location: [facility] Physical Exam Narrative alert and no apparent distress Constitutional Narrative: Patient appears frail General Appearance: cooperative, well kempt and well developed Orientation / Consciousness: awake, oriented to person and oriented to place HEENT normocephalic, head/scalp atraumatic and moist oral mucous membranes Eyes PERRL, EOMs intact bilaterally and conjunctivae normal Neck supple, no JVD, thyroid normal and no carotid bruits General: trachea midline Resp normal respiratory effort, no retractions, no use of accessory muscles and clear to auscultation bilaterally Resp Narrative: Right-sided chest tube is in place Auscultation: Negative for rales, rhonchi or wheezes Cardio no murmurs, no rub and no gallops Cardio Narrative: Heart rate and rhythm is irregular GI normal to inspection, nondistended, normoactive bowel sounds, soft to palpation, non-tender and non-distended Extremity no clubbing, cyanosis or edema Skin no rashes or lesions noted General Skin Exam: no breakdown Neuro CN's II-XII intact bilaterally, moves all extremities, no focal motor deficits and no sensory deficits noted Sensorium / Orientation: awake, alert, oriented to person and oriented to place Speech: speech normal Psych Psych Narrative: Patient has a flat affect Assessment & Plan Assessment/Plan (1) Pneumothorax, iatrogenic: PLAN: Plan 1. Iatrogenic pneumothorax-General Surgery pulled her chest tube yesterday and there was no evidence of pneumothorax #2 chronic atrial fibrillation-patient is currently on metoprolol, her Eliquis is being held for now #3 Parkinson's disease-complicates care, management, recovery, and prognosis #4 right pleural effusion-secondary to chronic congestive heart failure with preserved ejection fraction #5 chronic congestive heart failure with preserved ejection fraction-patient is on Lasix, lisinopril, and metoprolol #6 generalized debility-PT and OT are seeing the patient, the plan is for the patient to go to a shelter facility for short-term rehab services. Total clinical time spent by myself addressing the patient's medical issues, reviewing all of her data, collaborating with patient's care team: 35 minutes Charges/Coding Visit Charges Inpatient E&M: 59767 Subs Hosp L2
[2024-06-20 15:10] VITALS: BP 113/74; PULSE 84; RESP 16; TEMP 36.5; O2SAT 97
[2024-06-20 21:00] VITALS: BP 137/75; PULSE 83; RESP 16; TEMP 36.4; O2SAT 100
[2024-06-20 22:00] VITALS: O2SAT 99
[2024-06-21 03:00] VITALS: BP 144/79; PULSE 95; RESP 16; TEMP 36.7; O2SAT 97
[2024-06-21 04:00] VITALS: O2SAT 97
[2024-06-21 05:51] VITALS: BMI 20.5
[2024-06-21] MEDS: Carbidopa/Levodopa 10/100 Tablet PO (06:54)
[2024-06-21] MEDS: Glycerin/Hypromellose/PEG400 15 ml Bottle 1 DRP OPHTHALMIC (06:55)
[2024-06-21] MEDS: Acetaminophen 500 MG Tablet 1000 MG PO (06:55)
[2024-06-21 07:26] VITALS: O2SAT 95
--- NOTE | 2024-06-21 08:46 | PCM.TXEXTCAR ---
Diet Diet Order/Speech Therapy: 06/18/24 01:27 Diet: Cardiac - Heart Healthy Food consistency:: Regular Liquid Consistency:: Regular/Thin Diet Comments: strawberry banana smoothie once daily Routine Orders/Code Status Routine Lab Work: BMP (on 06/24/24) Code Status: DNRCC DC O2, CPAP, BIPAP needs Home O2 Discharge instructions: No Wound(s) right chest: Wound Type: Puncture Therapies Weight Bearing: Full weight bearing Problem/Diagnosis (1) Pneumothorax, iatrogenic: Status: Acute Code(s): J95.811 - Postprocedural pneumothorax Plan 1. Iatrogenic pneumothorax-General Surgery pulled her chest tube yesterday and there was no evidence of pneumothorax #2 chronic atrial fibrillation-patient is currently on metoprolol, her Eliquis is being held for now #3 Parkinson's disease-complicates care, management, recovery, and prognosis #4 right pleural effusion-secondary to chronic diastolic congestive heart failure with preserved ejection fraction #5 chronic congestive heart failure with preserved ejection fraction-patient is on Lasix, lisinopril, and metoprolol, Aldactone was added #6 generalized debility-PT and OT are seeing the patient, the plan is for the patient to go to a alf facility for short-term rehab services. Total clinical time spent by myself addressing the patient's medical issues, reviewing all of her data, collaborating with patient's care team: 35 minutes Allergies/Procedures Done in Hospital Allergies No Known Allergies Allergy (Verified 06/17/24 19:28) Procedures: - (Chest tube placement) Type of Care/Length of Stay Estimated LOS: Convalescent Care Less Than 30 days Type of Care Needed: Skilled Rehab Potential: Good Prognosis: Good Additional Orders/Day of Discharge H&P will serve as current which was dated: 06/18/24 Day of Discharge: 06/21/24 Dietary and Speech Recommendations Dietitian Recommendations/Changes: Continue with Cardiac diet at this time for admission reason. Will order Ensure Plus High Protein 120mL 4x/day with medpass as well as a fruit smoothie once daily to help increase oral intakes. If oral intakes remain poor, may recommend diet liberalization. Will continue to follow, monitor oral intakes and modify nutrition interventions as needed. Discharge Plan Admission Admit Date/Time: 06/18/24 00:31 Primary Reason for Your Visit: Iatrogenic right pneumothorax Attending Provider: Girish Childress Primary Care Provider: Prabhjot Skelton Consulting Providers: Sung Gamino; Julia Faith Instructions Patient Instructions: Pneumothorax (Collapsed Lung), ED Pleural Effusion Additional Instructions / Restrictions: Chest x-ray on 06/28/2024-reason: Right pleural effusion Discharge Orders/Prescriptions Prescriptions: New spironolactone [Aldactone] 25 mg tablet 25 mg PO DAILY Qty: 1 0RF Continued melatonin 3 mg capsule 3 mg PO HS PRN (Reason: Insomnia) loperamide [Imodium A-D] 2 mg tablet 2 mg PO DAILY PRN (Reason: loose stools) metoprolol succinate 25 mg tablet extended release 24 hr 25 mg PO DAILY Qty: 90 3RF Artificial Tears (cmc) 1 % drops 1 drp ophthalmic (eye) TID famotidine 20 mg tablet 20 mg PO BID PRN (Reason: acid reflux) furosemide 40 mg tablet 40 mg PO DAILY Qty: 90 3RF ascorbic acid (vitamin C) 1,000 mg tablet 1 g PO DAILY magnesium hydroxide [Johnson Milk of Magnesia] 400 mg/5 mL suspension 30 ml PO DAILY PRN (Reason: stomach upset) elderberry fruit 350 mg capsule 350 mg PO DAILY Calcium 600 with Vitamin D3 600 mg-10 mcg (400 unit) tablet,chewable 1 tab PO BID bisacodyl 10 mg suppository 10 mg [place] DAILY PRN (Reason: constipation) sennosides-docusate sodium 8.6-50 mg tablet 1 tab-cap PO QHS PRN (Reason: constipation) multivitamin 1 EACH tablet 1 ea PO DAILY carbidopa-levodopa 1 TABLET tablet 1 tab PO TIDAC Xiidra 5 % dropperette 1 drp ophthalmic (eye) BID Patient Comments: [NO ORIGINAL SIG] Rx Instructions: 1 drop each eye twice a day PreserVision AREDS-2 250-90-40-1 mg capsule 1 tab PO BID Eliquis 2.5 mg tablet 2.5 mg PO BID Qty: 60 11RF lisinopril 20 mg tablet 10 mg PO DAILY Qty: 0 0RF Changed acetaminophen 500 mg capsule 1,000 mg PO Q8H PRN (Reason: pain) Qty: 1 0RF Discontinued acetaminophen 325 mg capsule 650 mg PO DAILY PRN (Reason: general discomfort) Curamed 1 tab PO DAILY Referrals / Follow Up: Prabhjot Skelton DO [Primary Care Provider] - Sung Gamino MD [Med Staff - Active Staff] - Disposition Disposition (needs filled in before D/C Order can be placed): Residential Facility
--- NOTE | 2024-06-21 08:58 | PCM.DC.SUM ---
Providers Date of Admission: 06/18/24 Date of Discharge: 06/21/24 Primary Care Physician: Dr. Prabhjot Skelton, Consultations 06/18/24 01:27 Consult: General Surgery Routine Consulting Provider: Sung Gamino Reason for Consult: s/p pleural effusions thoracentesis->PTX EMERGENT Consult: No MD Notified: Yes Date Notified: 06/18/24 Time Notified: 00:33 Method of Notification: ED Physician Initiated Reason For Visit: PTX Diagnosis Discharge Diagnosis (1) Pneumothorax, iatrogenic: Status: Acute Code(s): J95.811 - Postprocedural pneumothorax Plan 1. Iatrogenic pneumothorax-General Surgery pulled her chest tube yesterday and there was no evidence of pneumothorax #2 chronic atrial fibrillation-patient is currently on metoprolol, her Eliquis is being held for now #3 Parkinson's disease-complicates care, management, recovery, and prognosis #4 right pleural effusion-secondary to chronic diastolic congestive heart failure with preserved ejection fraction #5 chronic congestive heart failure with preserved ejection fraction-patient is on Lasix, lisinopril, and metoprolol, Aldactone was added #6 generalized debility-PT and OT are seeing the patient, the plan is for the patient to go to a [facility] facility for short-term rehab services. Total clinical time spent by myself addressing the patient's medical issues, reviewing all of her data, collaborating with patient's care team: 35 minutes Medications at Discharge Home Medications carbidopa 10 mg-levodopa 100 mg tablet 1 tab PO TIDAC parkinsons 11/03/18 multivitamin 1 ea PO DAILY supplement 11/03/18 loperamide 2 mg tablet (Imodium A-D) 2 mg PO DAILY PRN loose stools 02/07/21 melatonin 3 mg capsule 3 mg PO HS PRN Insomnia 02/07/21 metoprolol succinate 25 mg tablet,extended release 24 hr 25 mg PO DAILY htn #90 tabs 02/07/21 apixaban 2.5 mg tablet (Eliquis) 2.5 mg PO BID #60 tabs 11/12/21 ascorbic acid (vitamin C) 1,000 mg tablet 1 g PO DAILY supplementation 05/06/22 bisacodyl 10 mg rectal suppository 10 mg [place] DAILY PRN constipation 05/06/22 calcium 600 mg (as carbonate)-vit D3 10 mcg (400 unit) chewable tablet (Calcium 600 with Vitamin D3) 1 tab PO BID supplementation 05/06/22 elderberry fruit 350 mg capsule 350 mg PO DAILY supplement 05/06/22 magnesium hydroxide 400 mg/5 mL oral suspension (Johnson Milk of Magnesia) 30 ml PO DAILY PRN stomach upset 05/06/22 sennosides 8.6 mg-docusate sodium 50 mg tablet 1 tab-cap PO QHS PRN constipation 05/06/22 carboxymethylcellulose sodium 1 % eye drops (Artificial Tears (carboxymethylcellulose)) 1 drp ophthalmic (eye) TID dry eyes 10/24/22 famotidine 20 mg tablet 20 mg PO BID PRN acid reflux 06/12/23 furosemide 40 mg tablet 40 mg PO DAILY #90 tabs 06/12/23 lisinopril 20 mg tablet 10 mg (1/2 x 20 mg) PO DAILY htn #0 tabs 05/28/24 lifitegrast 5 % eye drops in a dropperette (Xiidra) 1 drp ophthalmic (eye) BID nonexudative age-related macular degeneration 06/18/24 vit C 250 mg-vit E 90 mg-zinc 40 mg-copper 1 [id number] capsule (PreserVision AREDS-2) 1 tab PO BID supplementation 06/18/24 acetaminophen 500 mg capsule 1,000 mg (2 x 500 mg) PO Q8H PRN pain #1 cap 06/21/24 spironolactone 25 mg tablet (Aldactone) 25 mg PO DAILY #1 TAB 06/21/24 Hospital Course Operations None Procedures None Summary of Care Provided Minutes Spent on Discharge: 32 Hospital Course: This 89-year-old white female was seen in the emergency room at [facility] with complaints of shortness of breath, chest x-ray was obtained which showed a moderate right pleural effusion, patient underwent a thoracentesis in the emergency room and unfortunately the chest x-ray afterwards showed a pneumothorax, patient was seen by general surgery and had a chest tube put in. Patient was admitted to [place] [id number], she was seen by PT and OT and it was recommended that the patient go to a skilled facility for short-term rehab services and the patient agreed. Chest tube was removed, patient did not have any complications from the chest tube. On 06/21/2024, patient was seen and examined: On examination she appeared in good health and spirits, she does not appear to be in any distress. Vital signs as documented. Skin warm and dry and without overt rashes. Neck without JVD, thyroid appears normal, trachea is midline, neck is supple. Lungs clear, normal air movement was noted. Heart exam notable for regular rhythm, normal sounds and absence of murmurs, rubs or gallops. Abdomen unremarkable and without evidence of organomegaly, masses, or abdominal aortic enlargement, bowel sounds are present in all 4 quadrants, no abdominal tenderness was noted. Extremities nonedematous, no cyanosis was noted, no clubbing was noted. Neuro: Cranial nerves II through XII are grossly intact, no focal motor deficits were noted, sensation to light touch and pinprick is intact, motor exam 5/5 throughout. Psych: Patient is alert and oriented x3, she does not appear anxious or depressed, she does not appear agitated. Patient appears stable for discharge to the [facility] under skilled care on 06/21/2024. Weight / BMI Weight Weight: 57.9 kg Body Mass Index (BMI) 20.5 ABG / Lab / Microbiology Data 06/18/24 04:21 06/18/24 04:21 Microbiology: Microbiology 06/17/24 22:40 Fluid - Thoracentesis Fluid Gram Stain - Final 06/17/24 22:40 Fluid - Thoracentesis Fluid Body Fluid Culture - Final No growth aerobically. D/C Instructions DC O2, CPAP, BIPAP Needs Home O2 Discharge instructions: No Meaningful Use Info Meaningful Use Meaningful Use Diagnoses (Choose all that apply): None applicable Ischemic Stroke Statin Dosing Therapy Reference: STATIN DOSE THERAPY REFERENCE: * Patients > 75 years receive moderate or high dose statin therapy. * Patients 75 years or YOUNGER should receive HIGH intensity statin dose unless contraindicated. You will be required to document reason for non-treatment if statin daily dose does not meet guidelines. HIGH DOSE STATIN THERAPY DAILY Atorvastatin > than or = to 40 mg Rosuvastatin > than or = to 20 mg Amlodipine + Atorvastatin > than or = to 2.5/40 mg Ezetimibe + Simvastatin 10/80 mg Simvastatin 80mg Discharge Plan Admission Admit Date/Time: 06/18/24 00:31 Primary Reason for Your Visit: Iatrogenic right pneumothorax Attending Provider: Girish Childress Primary Care Provider: Prabhjot Skelton Consulting Providers: Sung Gamino; Julia Faith Instructions Patient Instructions: Pneumothorax (Collapsed Lung), ED Pleural Effusion Additional Instructions / Restrictions: Chest x-ray on 06/28/2024-reason: Right pleural effusion Discharge Orders/Prescriptions Prescriptions: New spironolactone [Aldactone] 25 mg tablet 25 mg PO DAILY Qty: 1 0RF Continued melatonin 3 mg capsule 3 mg PO HS PRN (Reason: Insomnia) loperamide [Imodium A-D] 2 mg tablet 2 mg PO DAILY PRN (Reason: loose stools) metoprolol succinate 25 mg tablet extended release 24 hr 25 mg PO DAILY Qty: 90 3RF Artificial Tears (cmc) 1 % drops 1 drp ophthalmic (eye) TID famotidine 20 mg tablet 20 mg PO BID PRN (Reason: acid reflux) furosemide 40 mg tablet 40 mg PO DAILY Qty: 90 3RF ascorbic acid (vitamin C) 1,000 mg tablet 1 g PO DAILY magnesium hydroxide [Johnson Milk of Magnesia] 400 mg/5 mL suspension 30 ml PO DAILY PRN (Reason: stomach upset) elderberry fruit 350 mg capsule 350 mg PO DAILY Calcium 600 with Vitamin D3 600 mg-10 mcg (400 unit) tablet,chewable 1 tab PO BID bisacodyl 10 mg suppository 10 mg [place] DAILY PRN (Reason: constipation) sennosides-docusate sodium 8.6-50 mg tablet 1 tab-cap PO QHS PRN (Reason: constipation) multivitamin 1 EACH tablet 1 ea PO DAILY carbidopa-levodopa 1 TABLET tablet 1 tab PO TIDAC Xiidra 5 % dropperette 1 drp ophthalmic (eye) BID Patient Comments: [NO ORIGINAL SIG] Rx Instructions: 1 drop each eye twice a day PreserVision AREDS-2 250-90-40-1 mg capsule 1 tab PO BID Eliquis 2.5 mg tablet 2.5 mg PO BID Qty: 60 11RF lisinopril 20 mg tablet 10 mg PO DAILY Qty: 0 0RF Changed acetaminophen 500 mg capsule 1,000 mg PO Q8H PRN (Reason: pain) Qty: 1 0RF Discontinued acetaminophen 325 mg capsule 650 mg PO DAILY PRN (Reason: general discomfort) Curamed 1 tab PO DAILY Referrals / Follow Up: Prabhjot Skelton DO [Primary Care Provider] - Sung Gamino MD [Med Staff - Active Staff] - Disposition Disposition (needs filled in before D/C Order can be placed): [facility] Facility Charges/Coding Visit Charges Inpatient E&M: 34775 Disch Hosp >30min
[2024-06-21 09:27] VITALS: BP 105/60; PULSE 94; RESP 18; TEMP 36.4; O2SAT 97
--- NOTE | 2024-06-21 09:31 | PHA.DC.MR.R ---
Pharmacy [place] Med Reconciliation Pharmacy Service has performed discharge medication reconciliation for this patient. The patient's discharge medication list was reviewed for discrepancies and discrepancies were resolved. Medications at Discharge Home Medications carbidopa 10 mg-levodopa 100 mg tablet 1 tab PO TIDAC parkinsons 11/03/18 multivitamin 1 ea PO DAILY supplement 11/03/18 loperamide 2 mg tablet (Imodium A-D) 2 mg PO DAILY PRN loose stools 02/07/21 melatonin 3 mg capsule 3 mg PO HS PRN Insomnia 02/07/21 metoprolol succinate 25 mg tablet,extended release 24 hr 25 mg PO DAILY htn #90 tabs 02/07/21 apixaban 2.5 mg tablet (Eliquis) 2.5 mg PO BID #60 tabs 11/12/21 ascorbic acid (vitamin C) 1,000 mg tablet 1 g PO DAILY supplementation 05/06/22 bisacodyl 10 mg rectal suppository 10 mg [place] DAILY PRN constipation 05/06/22 calcium 600 mg (as carbonate)-vit D3 10 mcg (400 unit) chewable tablet (Calcium 600 with Vitamin D3) 1 tab PO BID supplementation 05/06/22 elderberry fruit 350 mg capsule 350 mg PO DAILY supplement 05/06/22 magnesium hydroxide 400 mg/5 mL oral suspension (Johnson Milk of Magnesia) 30 ml PO DAILY PRN stomach upset 05/06/22 sennosides 8.6 mg-docusate sodium 50 mg tablet 1 tab-cap PO QHS PRN constipation 05/06/22 carboxymethylcellulose sodium 1 % eye drops (Artificial Tears (carboxymethylcellulose)) 1 drp ophthalmic (eye) TID dry eyes 10/24/22 famotidine 20 mg tablet 20 mg PO BID PRN acid reflux 06/12/23 furosemide 40 mg tablet 40 mg PO DAILY #90 tabs 06/12/23 lisinopril 20 mg tablet 10 mg (1/2 x 20 mg) PO DAILY htn #0 tabs 05/28/24 lifitegrast 5 % eye drops in a dropperette (Xiidra) 1 drp ophthalmic (eye) BID nonexudative age-related macular degeneration 06/18/24 vit C 250 mg-vit E 90 mg-zinc 40 mg-copper 1 [id number] capsule (PreserVision AREDS-2) 1 tab PO BID supplementation 06/18/24 acetaminophen 500 mg capsule 1,000 mg (2 x 500 mg) PO Q8H PRN pain #1 cap 06/21/24 spironolactone 25 mg tablet (Aldactone) 25 mg PO DAILY #1 TAB 06/21/24
[2024-06-21] MEDS: Lisinopril 10 MG Tablet PO (09:43)
[2024-06-21 09:44] VITALS: PULSE 94
[2024-06-21] MEDS: Furosemide 40 MG Tablet PO (09:44)
[2024-06-21] MEDS: Erythromycin Base 1 OPTH.TUBE 1 APPLIC OPHTHALMIC (09:44)
[2024-06-21] MEDS: Metoprolol(XL)Succ 25 MG Tablet PO (09:44)
--- NOTE | 2024-06-21 09:46 | CASEMGMT ---
Discharge Planning Discharge orders and signed med list sent to [facility]. Pts family will transport. Nursing updated. Fabby Torres DC Planning Asst.
--- NOTE | 2024-06-21 10:06 | NURSING ---
Report called to [facility] at [phone]. Pt family to transport her to [place] this am.
--- NOTE | 2024-06-21 10:23 | CASEMGMT ---
Social Work- Physician feels that pt is ready for discharge today.? [facility] notified of discharge. 7000 completed. Family to transport. Final discharge arrangements and notification to patient/family as per discharge director of financial planning.? Plan: [facility]; skilled level of care RUPALI Gorman
== END 2024-06-21 10:37 | disposition skilled nursing facility (03) | DRG 200 ==
LOC: ED 06-18 00:12 → MS3 06-18 01:18
PROVIDERS: Admitting Provider Family Medicine; Emergency Provider Emergency Medicine; PCP Student in an Organized Health Care Education/Training Program; Visit Provider Internal Medicine
DX: J95.811 Postprocedural pneumothorax (principal); J90 Pleural effusion, not elsewhere classified; I50.32 Chronic diastolic (congestive) heart failure; I13.0 Hypertensive heart and chronic kidney disease with heart failure and stage 1 through stage 4 chronic kidney disease, or unspecified chronic kidney disease; I48.20 Chronic atrial fibrillation, unspecified; Z66 Do not resuscitate; C50.912 Malignant neoplasm of unspecified site of left female breast; G20.A1 Parkinson's disease without dyskinesia, without mention of fluctuations; N18.31 Chronic kidney disease, stage 3a; K21.9 Gastro-esophageal reflux disease without esophagitis; E78.5 Hyperlipidemia, unspecified; K58.9 Irritable bowel syndrome, unspecified; I44.0 Atrioventricular block, first degree; I48.0 Paroxysmal atrial fibrillation; Z79.01 Long term (current) use of anticoagulants; R53.81 Other malaise; Z82.49 Family history of ischemic heart disease and other diseases of the circulatory system
CPT/HCPCS: 32551; 36415; 71045; 71046; 80048; 80053; 82550; 82945; 83735; 83880; 84145; 84157; 84443; 85025; 85027; 87070; 87075; 87077; 87086; 87088; 87205; 88108; 88305; 88313; 89050; 93005; 93306; 94668; 97110; 97116; 97162; 97166; 97530; 97535; 97802; 99285; A4216

== ENCOUNTER → 2024-06-29 | Outpatient (REF) | payer MEDICARE, SELFPAY ==
[2024-06-29 09:40] LABS: Anion Gap 12 (5-15); BUN 38 mg/dL (4-19); Calcium,Total 9.8 mg/dL (7.6-11.0); Carbon Dioxide 25.5 mmol/L (21.0-32.0); Chloride 99 mmol/L (98-108); EST Glomerular Filtration Rate 39 (>60); Glucose 101 mg/dL (70-99); Potassium 4.5 mmol/L (3.3-5.1); Sodium Level 136 mmol/L (133-145)
== END ==
LOC: OLS.ACH2 04:00
PROVIDERS: PCP Student in an Organized Health Care Education/Training Program; Referring Provider Internal Medicine; Visit Provider Internal Medicine
DX: N18.31 Chronic kidney disease, stage 3a (principal)
CPT/HCPCS: 36415; 80048

== ENCOUNTER → 2024-07-01 | Outpatient (REF) | payer MEDICARE, SELFPAY ==
[2024-07-01 08:21] LABS: Bacteria 0 SEEN /hpf (None Seen); Mucous, Urine 0 SEEN /hpf (<or=2+); Red Blood Cells-Urine 0 SEEN /hpf (0-5)
[2024-07-01 08:32] LABS: Hematocrit 35.4 % (37-47); Hemoglobin 11.4 g/dL (12.0-15.0); Mean Corp Hgb Conc 32.2 g/dL (32-36); Mean Corpuscular Hgb 28.7 pg (27.0-32.0); Mean Corpuscular Volume 89.2 fL (81-99); Mean Platelet Vol. 10.5 fl (6.2-12.0); Platelet Count 360 K/mm3 (150-450); RBC Distribution Width CV 14.3 % (11.6-14.6); RBC Distribution Width SD 46.4 fl (35.1-43.9); Red Blood Count 3.97 M/mm3 (4.2-5.4); White Blood Count 9.4 K/mm3 (4.4-11.0)
[2024-07-01 08:55] LABS: Color, Urine Yellow (Yellow); Glucose, Dipstick Normal (Normal); Ketone-Dipstick Negative (Negative); Leukocyte Esterase-Dipstick 500 /ul (Negative); Nitrite-Dipstick Negative (Negative); Occult Blood-Urine Negative /ul (Negative); Protein-Dipstick 30 mg/dl (Negative); Specific Gravity, Urine 1.015 (1.002-1.030); Urine Bilirubin Dipstick Negative (Negative); Urine Clarity Sl. Cloudy (Clear); Urine Urobilinogen Normal (Normal)
[2024-07-01 09:06] LABS: Calcium Oxalate Crystals Ur 1+ /hpf (<or=2+); Squamous Epithelial Cells - UA 0-5 SEEN /hpf (5-10); White Blood Cells 5-10 SEEN /hpf (0-5)
[2024-07-01 11:26] LABS: AST(SGOT) 21 U/L (<=31); Alanine Aminotransfer ALT/SGPT 6 U/L (<=34); Albumin, Serum 3.6 g/dL (3.4-4.8); Alkaline Phosphatase 119 U/L (35-104); Anion Gap 13 (5-15); BUN 34 mg/dL (4-19); BUN/Creat Ratio 26.9 RATIO (10-20); Calcium,Total 9.9 mg/dL (7.6-11.0); Carbon Dioxide 24.7 mmol/L (21.0-32.0); Chloride 99 mmol/L (98-108); Creatinine, Serum 1.26 mg/dL (0.70-1.20); EST Glomerular Filtration Rate 41 (>60); Globulin 3.6 g/dL (2.2-4.2); Glucose 101 mg/dL (70-99); Potassium 4.3 mmol/L (3.3-5.1); Protein, Total 7.2 g/dL (5.9-8.4); Sodium Level 136 mmol/L (133-145); Total Bilirubin 0.58 mg/dL (0.00-1.30)
== END ==
LOC: OLS.ACH2 05:00
PROVIDERS: PCP Student in an Organized Health Care Education/Training Program; Visit Provider Student in an Organized Health Care Education/Training Program
DX: R53.1 Weakness (principal); Z91.81 History of falling; R39.9 Unspecified symptoms and signs involving the genitourinary system
CPT/HCPCS: 36415; 80053; 81001; 85027; 87086; 87088

== ENCOUNTER → 2024-07-09 | Outpatient (CLI) | payer MEDICARE, OTHER, SELFPAY ==
--- NOTE | 2024-07-09 15:40 | RAD_ITS ---
PROCEDURE: CHEST PA AND LATERAL 07/09/2024 REASON FOR EXAM: Cough, fall earlier this week. TECHNIQUE: Frontal and lateral views of the chest. COMPARISON: Chest radiograph 06/19/2024. FINDINGS: Hardware: None. Heart: The heart size is normal. Mediastinum: The mediastinal contour is stable. Lungs: Small right pleural effusion, stable since prior examination. No focal consolidation or pneumothorax. Bones: Degenerative changes are identified within the thoracic spine. RAD/Chest PA and Lateral IMPRESSION: Stable small right pleural effusion. Reading Location: [id number]
== END | disposition home or self-care (01) ==
LOC: RAD 15:29
PROVIDERS: PCP Student in an Organized Health Care Education/Training Program; Referring Provider Nurse Practitioner Gerontology; Visit Provider Nurse Practitioner Gerontology
DX: R05.9 Cough, unspecified (principal)
CPT/HCPCS: 71046

== ENCOUNTER → 2024-07-29 | Outpatient (REF) | payer MEDICARE, SELFPAY ==
[2024-07-29 08:44] LABS: Hematocrit 35.6 % (37-47); Hemoglobin 11.7 g/dL (12.0-15.0); Mean Corp Hgb Conc 32.9 g/dL (32-36); Mean Corpuscular Volume 91.3 fL (81-99); Mean Platelet Vol. 10.2 fl (6.2-12.0); Platelet Count 285 K/mm3 (150-450); RBC Distribution Width CV 15.6 % (11.6-14.6); RBC Distribution Width SD 51.5 fl (35.1-43.9); White Blood Count 10.3 K/mm3 (4.4-11.0)
[2024-07-29 09:40] LABS: Anion Gap 11 (5-15); BUN 25 mg/dL (4-19); BUN/Creat Ratio 20.3 RATIO (10-20); Calcium,Total 9.8 mg/dL (7.6-11.0); Carbon Dioxide 25.4 mmol/L (21.0-32.0); Chloride 99 mmol/L (98-108); Creatinine, Serum 1.23 mg/dL (0.70-1.20); EST Glomerular Filtration Rate 42 (>60); Glucose 89 mg/dL (70-99); Potassium 4.7 mmol/L (3.3-5.1); Pro- Brain NATRIURETIC PEPTIDE 1320 pg/mL (<=1800); Sodium Level 135 mmol/L (133-145)
[2024-07-29 13:09] LABS: Microalbumin,Random Urine 27.4 mg/L (NO RANGE EST.)
[2024-09-17 08:11] LABS: Microalbumin:Creatinine Ratio 31.1 mg/g CRE
== END ==
LOC: OLS.ACH2 05:00
PROVIDERS: PCP Student in an Organized Health Care Education/Training Program; Visit Provider Internal Medicine
DX: I12.9 Hypertensive chronic kidney disease with stage 1 through stage 4 chronic kidney disease, or unspecified chronic kidney disease (principal); N18.31 Chronic kidney disease, stage 3a; I48.0 Paroxysmal atrial fibrillation; J90 Pleural effusion, not elsewhere classified; G20.A1 Parkinson's disease without dyskinesia, without mention of fluctuations
CPT/HCPCS: 36415; 80048; 82043; 82570; 83880; 85027